=== PATIENT | female | born 1955 | race Caucasian/White ===

== ENCOUNTER 2016-09-02 16:26 | Inpatient (IN) | payer MEDICARE, MEDICAID ==
[~2016-09-02] VITALS: Ht 170.2 cm; Wt 88.2 kg
[~2016-09-02 16:26] MED LIST: BACL10TA PO; DSS100 PO; DULO60CA44 PO; FERS325 PO; LEVE500T53 PO; METO25 PO; OMEP20 PO; PREG50 PO; QUET200T29 PO; ZOLP10 PO
[2016-09-02] MEDS ORDERED: QUEtiapine FUMARATE 100 MG TABLET PO PRN (18:15)
[2016-09-02] MEDS ORDERED: MAGNESIUM HYDROXIDE SUSPENSION 30 ML UDCUP PO PRN (18:15)
[2016-09-02] MEDS ORDERED: HydrOXYzine PAMOATE 50 MG CAPSULE PO PRN (18:15)
[2016-09-02] MEDS ORDERED: PROMETHAZINE HCL 25 MG TABLET PO PRN (18:15)
[2016-09-02] MEDS ORDERED: MAG HYDROX/AL HYDROX/SIMETH ES 30 ML SUSPENSION UDCUP PO PRN (18:15)
[2016-09-02] MEDS ORDERED: GuaiFENesin/D-METHORPHAN [SUGAR-FREE] 200-20MG/10 ML SYRUP UDCUP PO PRN (18:15)
[2016-09-02] MEDS ORDERED: LOPERAMIDE HCL 2 MG CAPSULE PO PRN (18:15)
[2016-09-02 19:29] LABS: APPEARANCE,URINE CLOUDY (CLEAR); GLUCOSE, URINE (UA) NEGATIVE (NEGATIVE); KETONES,URINE NEGATIVE (NEGATIVE); LEUKOCYTE ESTERASE ,URINE TRACE (NEGATIVE); OCCULT BLOOD,URINE NEGATIVE (NEGATIVE); PROTEIN,URINE NEGATIVE (NEGATIVE)
[2016-09-02 19:35] LABS: ADD UA MICROSCOPIC YES
[2016-09-02 19:36] LABS: RBC,URINE 0-2 /HPF (0-2); SQUAMOUS EPITHELIAL CELL,UR Few /LPF (None Seen)
[2016-09-02 20:49] VITALS: BP 136/85
[2016-09-02 21:10] VITALS: BP 139/87
[2016-09-02] MEDS: ACETAMINOPHEN 325 MG TABLET PO PRN (21:14)
[2016-09-02] MEDS: LevETIRAcetam 500 MG TABLET PO SCH (21:14)
[2016-09-02] MEDS: THIAMINE HCL 100 MG TABLET PO SCH (21:15)
[2016-09-02] MEDS: NITROFURANTOIN/NITROFURAN MAC 100 MG CAPSULE [MACROBID] PO SCH (21:15)
[2016-09-02] MEDS: PREGABALIN 50 MG CAPSULE PO SCH (21:15)
[2016-09-02] MEDS: ZOLPIDEM TARTRATE 10 MG TABLET PO PRN (21:20)
[2016-09-02] MEDS: QUEtiapine FUMARATE 200 MG TABLET PO SCH (21:20)
[2016-09-03 02:05] VITALS: BP 132/82
[2016-09-03] MEDS ORDERED: TraMADol HCL 50 MG TABLET PO PRN (06:00)
[2016-09-03] MEDS: FERROUS SULFATE 325 MG EC TABLET PO SCH ×3 (06:51→16:51)
[2016-09-03 08:30] VITALS: BP 114/74
[2016-09-03] MEDS ORDERED: DULoxetine HCL 60 MG CAPSULE PO SCH (09:00)
[2016-09-03] MEDS: MULTIVITAMINS WITH MINERALS, THERAPEUTIC TABLET PO SCH (09:36)
[2016-09-03] MEDS: THIAMINE HCL 100 MG TABLET PO SCH ×2 (09:36→16:51)
[2016-09-03] MEDS: NITROFURANTOIN/NITROFURAN MAC 100 MG CAPSULE [MACROBID] PO SCH ×2 (09:36→16:51)
[2016-09-03] MEDS: OMEPRAZOLE 20 MG CAPSULE PO SCH (09:36)
[2016-09-03] MEDS: PREGABALIN 50 MG CAPSULE PO SCH ×3 (09:38→16:51)
[2016-09-03] MEDS: METOPROLOL TARTRATE 25 MG TABLET PO SCH ×2 (09:38→16:51)
[2016-09-03] MEDS: LevETIRAcetam 500 MG TABLET PO SCH ×2 (09:39→16:50)
[2016-09-03] MEDS: DOCUSATE SODIUM 100 MG CAPSULE PO SCH (09:39)
[2016-09-03] MEDS: FOLIC ACID 1 MG TABLET PO SCH (09:40)
[2016-09-03] MEDS: DULoxetine HCL 60 MG CAPSULE PO SCH (09:40)
[2016-09-03] MEDS: BACLOFEN 10 MG TABLET PO SCH ×3 (09:40→16:51)
[2016-09-03] MEDS: LORazepam 1 MG TABLET PO PRN (10:30)
[2016-09-03 17:00] VITALS: BP 118/72
[2016-09-03] MEDS: QUEtiapine FUMARATE 200 MG TABLET PO SCH (20:55)
[2016-09-04 06:08] LABS: BASOPHILS % (AUTO) 0.7 % (0.0-2.0); EOSINOPHILS % (AUTO) 3.3 % (1.0-6.0); HEMATOCRIT 40.1 % (36-46); HEMOGLOBIN 12.7 g/dL (12.0-16.0); LYMPHOCYTES # (AUTO) 2.3 K/uL (1.0-4.8); LYMPHOCYTES % (AUTO) 35.4 % (22.0-44.0); MEAN CORPUSCULAR HGB CONC 31.7 G/dL (31.0-37.0); MEAN CORPUSCULAR VOLUME 85 fL (80-100); MONOCYTES # (AUTO) 0.7 K/uL (0.1-1.0); MONOCYTES % (AUTO) 10.7 % (2.0-9.0); NEUTROPHILS # (AUTO) 3.2 K/uL (1.8-7.7); NEUTROPHILS % (AUTO) 49.9 % (40.0-70.0); PLATELET COUNT (AUTO) 219 K/uL (150-450); RED BLOOD CELL COUNT(AUTO) 4.71 MIL/uL (4.00-5.20); RED CELL DISTRIBUTION WIDTH 15.1 % (11.5-14.5); WHITE BLOOD COUNT (AUTO) 6.4 K/uL (4.5-11.0)
[2016-09-04] MEDS: FERROUS SULFATE 325 MG EC TABLET PO SCH ×2 (06:38→16:34)
[2016-09-04 06:39] LABS: ALANINE AMINOTRANSFERASE 12 U/L (12-78); ALBUMIN 3.1 g/dL (3.4-5.0); ANION GAP 7 mmol/L (8-16); ASPARTATE AMINOTRANSFERASE 11 U/L (15-37); BILIRUBIN,TOTAL 0.5 mg/dL (0.1-1.0); CALCIUM, TOTAL 8.8 mg/dL (8.8-10.5); CARBON DIOXIDE 29 mmol/L (22-29); CHLORIDE 105 mmol/L (98-107); CHOL/HDL RATIO 2.5 (3.9-5.7); CREATININE 0.62 mg/dL (0.60-1.30); GLOMERULAR FILTR. RATE CALC > 60 mL/min (>60); POTASSIUM 3.8 mmol/L (3.5-5.1); SODIUM SERUM 141 mmol/L (136-145); THYROID STIMULATING HORMONE 0.86 uIU/mL (0.36-3.74); TOTAL PROTEIN, SERUM 6.3 g/dL (6.4-8.2); UREA NITROGEN, BLOOD 20 mg/dL (7-18)
[2016-09-04 07:12] LABS: HEMOGLOBIN A1C 5.9 % (4.5-6.2)
[2016-09-04 08:00] VITALS: BP 111/73
[2016-09-04] MEDS: DULoxetine HCL 60 MG CAPSULE PO SCH (08:27)
[2016-09-04] MEDS: LevETIRAcetam 500 MG TABLET PO SCH ×2 (08:27→16:34)
[2016-09-04] MEDS: PREGABALIN 50 MG CAPSULE PO SCH ×3 (08:27→16:34)
[2016-09-04] MEDS: OMEPRAZOLE 20 MG CAPSULE PO SCH (08:27)
[2016-09-04] MEDS: MULTIVITAMINS WITH MINERALS, THERAPEUTIC TABLET PO SCH (08:27)
[2016-09-04] MEDS: THIAMINE HCL 100 MG TABLET PO SCH ×2 (08:27→16:35)
[2016-09-04] MEDS: DOCUSATE SODIUM 100 MG CAPSULE PO SCH (08:27)
[2016-09-04] MEDS: FOLIC ACID 1 MG TABLET PO SCH (08:27)
[2016-09-04] MEDS: BACLOFEN 10 MG TABLET PO SCH ×3 (08:28→16:34)
[2016-09-04] MEDS: LORazepam 1 MG TABLET PO PRN ×3 (08:58→20:31)
[2016-09-04] MEDS: METOPROLOL TARTRATE 25 MG TABLET PO SCH ×2 (09:38→16:34)
[2016-09-04] MEDS: NITROFURANTOIN/NITROFURAN MAC 100 MG CAPSULE [MACROBID] PO SCH ×2 (09:39→16:34)
[2016-09-04 16:20] VITALS: BP 131/70
[2016-09-04] MEDS: QUEtiapine FUMARATE 200 MG TABLET PO SCH (20:14)
[2016-09-04] MEDS: ZOLPIDEM TARTRATE 10 MG TABLET PO PRN (20:48)
[2016-09-05] MEDS: FERROUS SULFATE 325 MG EC TABLET PO SCH ×2 (07:21→16:32)
[2016-09-05 08:00] VITALS: BP 113/62
[2016-09-05] MEDS: THIAMINE HCL 100 MG TABLET PO SCH ×2 (08:28→16:23)
[2016-09-05] MEDS: BACLOFEN 10 MG TABLET PO SCH ×3 (08:28→16:23)
[2016-09-05] MEDS: PREGABALIN 50 MG CAPSULE PO SCH ×3 (08:28→16:22)
[2016-09-05] MEDS: OMEPRAZOLE 20 MG CAPSULE PO SCH (08:28)
[2016-09-05] MEDS: METOPROLOL TARTRATE 25 MG TABLET PO SCH ×2 (08:28→16:22)
[2016-09-05] MEDS: FOLIC ACID 1 MG TABLET PO SCH (08:28)
[2016-09-05] MEDS: LevETIRAcetam 500 MG TABLET PO SCH ×2 (08:28→16:24)
[2016-09-05] MEDS: DULoxetine HCL 60 MG CAPSULE PO SCH (08:28)
[2016-09-05] MEDS: MULTIVITAMINS WITH MINERALS, THERAPEUTIC TABLET PO SCH (08:28)
[2016-09-05] MEDS: DOCUSATE SODIUM 100 MG CAPSULE PO SCH (08:28)
[2016-09-05] MEDS: NITROFURANTOIN/NITROFURAN MAC 100 MG CAPSULE [MACROBID] PO SCH ×2 (08:29→16:23)
[2016-09-05] MEDS: LORazepam 1 MG TABLET PO PRN ×2 (10:36→16:20)
[2016-09-05] MEDS ORDERED: ONDANSETRON HCL 4 MG TABLET PO PRN (15:00)
[2016-09-05] MEDS ORDERED: PETROLATUM,WHITE 71 GM JELLY TP PRN (15:00)
[2016-09-05] MEDS ORDERED: LOPERAMIDE HCL 2 MG CAPSULE PO PRN (15:00)
[2016-09-05] MEDS ORDERED: CloNIDine HCL 0.1 MG TABLET PO PRN (15:00)
[2016-09-05] MEDS ORDERED: ALBUTEROL SULFATE HFA 90 MCG/PUFF 8 GM INHALER IH PRN (15:00)
[2016-09-05] MEDS ORDERED: BACITRACIN 28.4 GM OINTMENT TP PRN (15:00)
[2016-09-05] MEDS ORDERED: BENZOCAINE/MENTHOL LOZENGE [8 LOZENGES/PACKET] MM PRN (15:15)
[2016-09-05 16:19] VITALS: BP 127/83
[2016-09-05] MEDS: ACETAMINOPHEN 325 MG TABLET PO PRN (16:20)
[2016-09-05] MEDS: LACTULOSE 20 GM/30 ML SOLUTION UDCUP PO PRN (16:22)
[2016-09-05] MEDS: ZOLPIDEM TARTRATE 10 MG TABLET PO PRN (20:29)
[2016-09-05] MEDS: QUEtiapine FUMARATE 200 MG TABLET PO SCH (20:29)
[2016-09-06] MEDS: FERROUS SULFATE 325 MG EC TABLET PO SCH ×2 (07:07→17:35)
[2016-09-06] MEDS: FOLIC ACID 1 MG TABLET PO SCH (08:08)
[2016-09-06] MEDS: LevETIRAcetam 500 MG TABLET PO SCH ×2 (08:08→17:35)
[2016-09-06] MEDS: BACLOFEN 10 MG TABLET PO SCH ×3 (08:08→17:36)
[2016-09-06] MEDS: DOCUSATE SODIUM 100 MG CAPSULE PO SCH (08:08)
[2016-09-06] MEDS: METOPROLOL TARTRATE 25 MG TABLET PO SCH ×2 (08:08→17:00)
[2016-09-06] MEDS: DULoxetine HCL 60 MG CAPSULE PO SCH (08:09)
[2016-09-06] MEDS: PREGABALIN 50 MG CAPSULE PO SCH ×3 (08:09→17:35)
[2016-09-06] MEDS: THIAMINE HCL 100 MG TABLET PO SCH ×2 (08:09→17:35)
[2016-09-06] MEDS: OMEPRAZOLE 20 MG CAPSULE PO SCH (08:09)
[2016-09-06] MEDS: NITROFURANTOIN/NITROFURAN MAC 100 MG CAPSULE [MACROBID] PO SCH ×2 (08:09→17:35)
[2016-09-06] MEDS: MULTIVITAMINS WITH MINERALS, THERAPEUTIC TABLET PO SCH (08:09)
[2016-09-06 08:17] VITALS: BP 108/62
[2016-09-06] MEDS: LORazepam 1 MG TABLET PO PRN (12:50)
[2016-09-06 17:00] VITALS: BP 112/68
[2016-09-06] MEDS: QUEtiapine FUMARATE 200 MG TABLET PO SCH (20:02)
[2016-09-06] MEDS: ZOLPIDEM TARTRATE 10 MG TABLET PO PRN (21:07)
[2016-09-07 05:20] VITALS: BP 115/69
[2016-09-07] MEDS: LORazepam 1 MG TABLET PO PRN ×2 (05:23→11:10)
[2016-09-07] MEDS: FERROUS SULFATE 325 MG EC TABLET PO SCH ×2 (07:05→16:44)
[2016-09-07 08:18] VITALS: BP 114/65
[2016-09-07] MEDS: MULTIVITAMINS WITH MINERALS, THERAPEUTIC TABLET PO SCH (08:36)
[2016-09-07] MEDS: OMEPRAZOLE 20 MG CAPSULE PO SCH (08:36)
[2016-09-07] MEDS: FOLIC ACID 1 MG TABLET PO SCH (08:38)
[2016-09-07] MEDS: LevETIRAcetam 500 MG TABLET PO SCH ×2 (08:38→16:44)
[2016-09-07] MEDS: DOCUSATE SODIUM 100 MG CAPSULE PO SCH (08:38)
[2016-09-07] MEDS: DULoxetine HCL 60 MG CAPSULE PO SCH (08:39)
[2016-09-07] MEDS: THIAMINE HCL 100 MG TABLET PO SCH ×2 (08:41→16:44)
[2016-09-07] MEDS: PREGABALIN 50 MG CAPSULE PO SCH ×3 (08:41→16:43)
[2016-09-07] MEDS: BACLOFEN 10 MG TABLET PO SCH ×3 (08:41→16:43)
[2016-09-07] MEDS: NITROFURANTOIN/NITROFURAN MAC 100 MG CAPSULE [MACROBID] PO SCH ×2 (08:41→16:43)
[2016-09-07] MEDS: METOPROLOL TARTRATE 25 MG TABLET PO SCH ×2 (09:00→16:44)
[2016-09-07] MEDS: IBUPROFEN 600 MG TABLET PO PRN (11:10)
[2016-09-07 16:31] VITALS: BP 99/56
[2016-09-07] MEDS: QUEtiapine FUMARATE 200 MG TABLET PO SCH (20:21)
[2016-09-08] MEDS: ZOLPIDEM TARTRATE 10 MG TABLET PO PRN ×2 (02:59→20:14)
[2016-09-08 03:09] VITALS: BP 98/52
[2016-09-08] MEDS: FERROUS SULFATE 325 MG EC TABLET PO SCH ×3 (07:17→19:09)
[2016-09-08 08:20] VITALS: BP 96/52
[2016-09-08] MEDS: METOPROLOL TARTRATE 25 MG TABLET PO SCH ×2 (08:21→16:07)
[2016-09-08] MEDS: FOLIC ACID 1 MG TABLET PO SCH (08:21)
[2016-09-08] MEDS: OMEPRAZOLE 20 MG CAPSULE PO SCH (08:21)
[2016-09-08] MEDS: DOCUSATE SODIUM 100 MG CAPSULE PO SCH (08:21)
[2016-09-08] MEDS: THIAMINE HCL 100 MG TABLET PO SCH ×2 (08:22→16:08)
[2016-09-08] MEDS: MULTIVITAMINS WITH MINERALS, THERAPEUTIC TABLET PO SCH (08:22)
[2016-09-08] MEDS: LevETIRAcetam 500 MG TABLET PO SCH ×2 (08:22→16:08)
[2016-09-08] MEDS: BACLOFEN 10 MG TABLET PO SCH ×3 (08:22→19:09)
[2016-09-08] MEDS: DULoxetine HCL 60 MG CAPSULE PO SCH (08:22)
[2016-09-08] MEDS: PREGABALIN 50 MG CAPSULE PO SCH ×3 (08:22→16:07)
[2016-09-08] MEDS: LACTULOSE 20 GM/30 ML SOLUTION UDCUP PO PRN (08:26)
[2016-09-08] MEDS: LORazepam 1 MG TABLET PO PRN (11:32)
[2016-09-08 16:28] VITALS: BP 101/67
[2016-09-08] MEDS ORDERED: LEVE500T53 PO (17:40)
[2016-09-08] MEDS ORDERED: QUET200T29 PO (17:40)
[2016-09-08] MEDS ORDERED: PREG50 PO (17:40)
[2016-09-08] MEDS ORDERED: DULO60CA44 PO (17:40)
[2016-09-08] MEDS ORDERED: DICLOFENAC SODIUM 1% 100 GM GEL [2GM] TP PRN (20:00)
[2016-09-08] MEDS: QUEtiapine FUMARATE 200 MG TABLET PO SCH (20:12)
[2016-09-08] MEDS: NITROFURANTOIN/NITROFURAN MAC 100 MG CAPSULE [MACROBID] PO SCH (20:25)
[2016-09-09] MEDS: IBUPROFEN 600 MG TABLET PO PRN (02:54)
[2016-09-09 02:55] VITALS: BP 109/65
[2016-09-09] MEDS: LORazepam 1 MG TABLET PO PRN (02:55)
[2016-09-09] MEDS: FERROUS SULFATE 325 MG EC TABLET PO SCH (06:48)
[2016-09-09] MEDS: BACLOFEN 10 MG TABLET PO SCH (08:17)
[2016-09-09] MEDS: DULoxetine HCL 60 MG CAPSULE PO SCH (08:17)
[2016-09-09] MEDS: NITROFURANTOIN/NITROFURAN MAC 100 MG CAPSULE [MACROBID] PO SCH (08:18)
[2016-09-09] MEDS: LevETIRAcetam 500 MG TABLET PO SCH (08:18)
[2016-09-09] MEDS: PREGABALIN 50 MG CAPSULE PO SCH (08:18)
[2016-09-09] MEDS: THIAMINE HCL 100 MG TABLET PO SCH (08:18)
[2016-09-09] MEDS: MULTIVITAMINS WITH MINERALS, THERAPEUTIC TABLET PO SCH (08:18)
[2016-09-09] MEDS: FOLIC ACID 1 MG TABLET PO SCH (08:19)
[2016-09-09] MEDS: METOPROLOL TARTRATE 25 MG TABLET PO SCH ×2 (08:19→09:00)
[2016-09-09] MEDS: OMEPRAZOLE 20 MG CAPSULE PO SCH (08:19)
[2016-09-09] MEDS: DOCUSATE SODIUM 100 MG CAPSULE PO SCH (08:19)
[2016-09-09 08:42] VITALS: BP 93/60
[2016-09-09] MEDS ORDERED: MACR100 PO (09:04)
== END 2016-09-09 12:45 | disposition home or self-care (01) | DRG 885 ==
LOC: EMS 16:29 → 3EX 19:00
PROVIDERS: ADMIT Psychiatry & Neurology Psychiatry; ATTEND Psychiatry & Neurology Psychiatry
DX: F25.0 Schizoaffective disorder, bipolar type (principal); R45.851 Suicidal ideations; N39.0 Urinary tract infection, site not specified; F41.9 Anxiety disorder, unspecified; J44.9 Chronic obstructive pulmonary disease, unspecified; K21.9 Gastro-esophageal reflux disease without esophagitis; I10 Essential (primary) hypertension; M54.9 Dorsalgia, unspecified; G40.909 Epilepsy, unspecified, not intractable, without status epilepticus; G83.10 Monoplegia of lower limb affecting unspecified side; N31.9 Neuromuscular dysfunction of bladder, unspecified; G89.4 Chronic pain syndrome; E66.9 Obesity, unspecified; M21.379 Foot drop, unspecified foot; M54.2 Cervicalgia; K59.00 Constipation, unspecified; G47.00 Insomnia, unspecified; M19.90 Unspecified osteoarthritis, unspecified site; F60.3 Borderline personality disorder; M25.552 Pain in left hip; E86.0 Dehydration; F17.210 Nicotine dependence, cigarettes, uncomplicated; F11.90 Opioid use, unspecified, uncomplicated; Z88.0 Allergy status to penicillin; Z79.899 Other long term (current) drug therapy; Z90.49 Acquired absence of other specified parts of digestive tract; Z91.19 Patient's noncompliance with other medical treatment and regimen; Z68.31 Body mass index [BMI] 31.0-31.9, adult; Z87.440 Personal history of urinary (tract) infections; Z91.410 Personal history of adult physical and sexual abuse; Z87.820 Personal history of traumatic brain injury
CPT/HCPCS: 82607; 82746; 83036; 84439; 84443; 86592; 87086; 99285

== ENCOUNTER 2016-10-04 11:38 | Emergency (ER) | payer OTHER ==
[~2016-10-04] VITALS: Ht 170.2 cm; Wt 87.7 kg
[~2016-10-04 11:38] MED LIST changes: +FERR-89 PO; -FERS325 PO; +MACR100 PO; -ZOLP10 PO
[2016-10-04] MEDS ORDERED: HYDROCODONE/ACETAMINOPHEN 5-325 MG TABLET PO ONE (13:30)
[2016-10-04 15:30] VITALS: BP 124/78
== END 2016-10-04 16:00 | disposition home or self-care (01) ==
LOC: EMS 11:40
DX: S13.4XXA Sprain of ligaments of cervical spine, initial encounter (principal); S00.93XA Contusion of unspecified part of head, initial encounter; M54.9 Dorsalgia, unspecified; J44.9 Chronic obstructive pulmonary disease, unspecified; I10 Essential (primary) hypertension; K21.9 Gastro-esophageal reflux disease without esophagitis; Z88.0 Allergy status to penicillin; W18.39XA Other fall on same level, initial encounter; Y93.89 Activity, other specified; Y92.89 Other specified places as the place of occurrence of the external cause; Y99.8 Other external cause status
CPT/HCPCS: 70450; 72072; 72100; 72125; 99284

== ENCOUNTER 2016-11-05 12:56 | Emergency (ER) | payer MEDICARE, OTHER ==
[~2016-11-05] VITALS: Ht 170.2 cm; Wt 87.7 kg
[2016-11-05 14:39] VITALS: BP 107/72
== END 2016-11-05 14:51 | disposition home or self-care (01) ==
LOC: EMS 12:58
DX: R53.1 Weakness (principal); F20.9 Schizophrenia, unspecified; F32.9 Major depressive disorder, single episode, unspecified; F41.9 Anxiety disorder, unspecified; J44.9 Chronic obstructive pulmonary disease, unspecified; I10 Essential (primary) hypertension; K21.9 Gastro-esophageal reflux disease without esophagitis; Z88.0 Allergy status to penicillin; Z79.899 Other long term (current) drug therapy
CPT/HCPCS: 99283

== ENCOUNTER 2017-01-20 22:29 | Emergency (ER) | payer MEDICAID, MEDICARE ==
[~2017-01-20] VITALS: Ht 167.6 cm; Wt 68.0 kg
[~2017-01-20 22:29] MED LIST changes: +ACAM333T7 PO; -BACL10TA PO; -FERR-89 PO; -MACR100 PO; -OMEP20 PO; +PANT40TA25 PO; +PREG75 PO; -QUET200T29 PO; +QUET25TA PO; +QUET25TA34 PO; +QUET300T18 PO; +QUET300T2 PO
[2017-01-21 01:16] LABS: BASOPHILS # (AUTO) 0.12 K/uL (0.00-0.20); BASOPHILS % (AUTO) 1.4 % (0.0-2.0); EOSINOPHILS # (AUTO) 0.13 K/uL (0.00-0.70); HEMATOCRIT 45.4 % (36-46); LYMPHOCYTES # (AUTO) 2.5 K/uL (1.0-4.8); MEAN CORPUSCULAR HEMOGLOBIN 28.3 pg (26.0-34.0); MEAN CORPUSCULAR HGB CONC 33.1 G/dL (31.0-37.0); MEAN CORPUSCULAR VOLUME 85 fL (80-100); MONOCYTES # (AUTO) 0.8 K/uL (0.1-1.0); MONOCYTES % (AUTO) 10.3 % (2.0-9.0); NEUTROPHILS # (AUTO) 4.5 K/uL (1.8-7.7); NEUTROPHILS % (AUTO) 55.7 % (40.0-70.0); PLATELET COUNT (AUTO) 289 K/uL (150-450); RED BLOOD CELL COUNT(AUTO) 5.31 MIL/uL (4.00-5.20); RED CELL DISTRIBUTION WIDTH 15.4 % (11.5-14.5); WHITE BLOOD COUNT (AUTO) 8.1 K/uL (4.5-11.0)
[2017-01-21 01:24] LABS: ANION GAP 11 mmol/L (8-16); CALCIUM, TOTAL 9.6 mg/dL (8.8-10.5); CARBON DIOXIDE 23 mmol/L (22-29); CHLORIDE 106 mmol/L (98-107); CREATININE 0.83 mg/dL (0.60-1.30); GLOMERULAR FILTR. RATE CALC > 60 mL/min (>60); POTASSIUM 3.7 mmol/L (3.5-5.1); SODIUM SERUM 140 mmol/L (136-145); UREA NITROGEN, BLOOD 18 mg/dL (7-18)
[2017-01-21 01:31] LABS: ALANINE AMINOTRANSFERASE 21 U/L (12-78); ALBUMIN 3.7 g/dL (3.4-5.0); ASPARTATE AMINOTRANSFERASE 12 U/L (15-37); BILIRUBIN,TOTAL 0.6 mg/dL (0.1-1.0); TOTAL PROTEIN, SERUM 7.3 g/dL (6.4-8.2)
[2017-01-21 03:43] VITALS: BP 129/77
[2017-01-25] MEDS ORDERED: CIPR-278 PO (13:14)
== END 2017-01-21 04:24 | disposition home or self-care (01) ==
LOC: EMS 22:35
DX: R46.89 Other symptoms and signs involving appearance and behavior (principal); R45.851 Suicidal ideations; F20.9 Schizophrenia, unspecified; F32.9 Major depressive disorder, single episode, unspecified; F41.9 Anxiety disorder, unspecified; J44.9 Chronic obstructive pulmonary disease, unspecified; K21.9 Gastro-esophageal reflux disease without esophagitis; I10 Essential (primary) hypertension; Z88.0 Allergy status to penicillin
CPT/HCPCS: 36415; 80053; 80307; 85025; 99284; G0480

== ENCOUNTER 2017-03-28 21:58 | Emergency (ER) | payer MEDICARE ==
[~2017-03-28] VITALS: Ht 170.2 cm; Wt 90.0 kg
[~2017-03-28 21:58] MED LIST changes: +CIPR-278 PO; -METO25 PO; -PREG75 PO; -QUET25TA PO; -QUET25TA34 PO; -QUET300T2 PO
[2017-03-28] MEDS ORDERED: CLON-570 PO (22:32)
[2017-03-28] MEDS ORDERED: VIST50 PO ×2 (22:40)
[2017-03-28] MEDS ORDERED: IBUP-2070 PO (22:40)
[2017-03-28] MEDS ORDERED: HYDROMORPHONE PO (22:40)
[2017-03-28] MEDS ORDERED: CYCL10 PO (22:40)
[2017-03-28] MEDS ORDERED: ZOLP10TA7 PO (22:40)
[2017-03-28] MEDS ORDERED: IPRA3AMP4 NEB (22:40)
[2017-03-28] MEDS ORDERED: DIVA250T45 PO (22:40)
[2017-03-28] MEDS ORDERED: OXYC20 PO (22:40)
[2017-03-28] MEDS ORDERED: HYDR-309 PO (22:40)
[2017-03-28] MEDS ORDERED: ONDA4 PO (22:40)
[2017-03-29] MEDS ORDERED: ACETAMINOPHEN 500 MG TABLET PO ONE (01:15)
[2017-03-29] MEDS ORDERED: HYDROCODONE/ACETAMINOPHEN 10-325 MG TABLET PO ONE (09:00)
[2017-03-29 10:30] VITALS: BP 124/82
== END 2017-03-29 11:18 | disposition home or self-care (01) ==
LOC: EMS 22:02
DX: S46.912A Strain of unspecified muscle, fascia and tendon at shoulder and upper arm level, left arm, initial encounter (principal); J44.9 Chronic obstructive pulmonary disease, unspecified; K21.9 Gastro-esophageal reflux disease without esophagitis; I10 Essential (primary) hypertension; Z88.8 Allergy status to other drugs, medicaments and biological substances; Z88.0 Allergy status to penicillin; W50.0XXA Accidental hit or strike by another person, initial encounter; Y93.89 Activity, other specified; Y92.89 Other specified places as the place of occurrence of the external cause; Y99.8 Other external cause status
CPT/HCPCS: 99284

== ENCOUNTER 2017-04-22 11:29 | Emergency (ER) | payer MEDICARE, MEDICAID ==
[~2017-04-22] VITALS: Ht 170.2 cm; Wt 87.7 kg
[~2017-04-22 11:29] MED LIST changes: -CIPR-278 PO; +CLON-570 PO; +CYCL10 PO; +DIVA250T45 PO; +HYDR-309 PO; +HYDROMORPHONE PO; +IBUP-2070 PO; +IPRA3AMP4 NEB; +ONDA4 PO; +OXYC20 PO; +VIST50 PO; +ZOLP10TA7 PO
[2017-04-22] MEDS ORDERED: NALO25TA PO (12:04)
[2017-04-22 14:12] VITALS: BP 114/82
[2017-04-22] MEDS ORDERED: HydrOXYzine PAMOATE 25 MG CAPSULE PO ONE (14:15)
== END 2017-04-22 14:37 | disposition home or self-care (01) ==
LOC: EMS 11:31
DX: F43.21 Adjustment disorder with depressed mood (principal); N39.0 Urinary tract infection, site not specified; F41.9 Anxiety disorder, unspecified; F31.9 Bipolar disorder, unspecified; F20.9 Schizophrenia, unspecified; J44.9 Chronic obstructive pulmonary disease, unspecified; K21.9 Gastro-esophageal reflux disease without esophagitis; G89.29 Other chronic pain; Z59.9 Problem related to housing and economic circumstances, unspecified; Z88.8 Allergy status to other drugs, medicaments and biological substances; Z88.0 Allergy status to penicillin
CPT/HCPCS: 99284

== ENCOUNTER 2017-04-22 17:00 | Inpatient (IN) | payer MEDICARE, MEDICAID ==
[~2017-04-22] VITALS: Ht 170.2 cm; Wt 83.2 kg
[~2017-04-22 17:00] MED LIST changes: +NALO25TA PO
[2017-04-22 19:28] LABS: BASOPHILS % (AUTO) 0.5 % (0.0-2.0); EOSINOPHILS % (AUTO) 0.3 % (1.0-6.0); HEMATOCRIT 42.1 % (36-46); HEMOGLOBIN 14.3 g/dL (12.0-16.0); LYMPHOCYTES # (AUTO) 1.3 K/uL (1.0-4.8); LYMPHOCYTES % (AUTO) 26.1 % (22.0-44.0); MEAN CORPUSCULAR HEMOGLOBIN 28.5 pg (26.0-34.0); MEAN CORPUSCULAR HGB CONC 33.8 G/dL (31.0-37.0); MEAN CORPUSCULAR VOLUME 84 fL (80-100); MONOCYTES # (AUTO) 0.4 K/uL (0.1-1.0); MONOCYTES % (AUTO) 8.1 % (2.0-9.0); NEUTROPHILS # (AUTO) 3.3 K/uL (1.8-7.7); PLATELET COUNT (AUTO) 274 K/uL (150-450); RED BLOOD CELL COUNT(AUTO) 5.01 MIL/uL (4.00-5.20); RED CELL DISTRIBUTION WIDTH 13.4 % (11.5-14.5)
[2017-04-22 20:04] LABS: ALANINE AMINOTRANSFERASE 24 U/L (12-78); ANION GAP 12 mmol/L (8-16); ASPARTATE AMINOTRANSFERASE 19 U/L (15-37); BILIRUBIN,TOTAL 0.6 mg/dL (0.1-1.0); CALCIUM, TOTAL 9.5 mg/dL (8.8-10.5); CARBON DIOXIDE 25 mmol/L (22-29); CHLORIDE 103 mmol/L (98-107); CHOL/HDL RATIO 2.2 (3.9-5.7); CREATININE 0.68 mg/dL (0.60-1.30); GLOMERULAR FILTR. RATE CALC > 60 mL/min (>60); POTASSIUM 3.9 mmol/L (3.5-5.1); SODIUM SERUM 140 mmol/L (136-145); THYROID STIMULATING HORMONE 0.49 uIU/mL (0.36-3.74); TOTAL PROTEIN, SERUM 7.7 g/dL (6.4-8.2); UREA NITROGEN, BLOOD 14 mg/dL (7-18)
[2017-04-22] MEDS ORDERED: CIPROFLOXACIN HCL 500 MG TABLET PO ONE (20:15)
[2017-04-22 20:23] LABS: HEMOGLOBIN A1C 5.5 % (4.5-6.2)
[2017-04-22 21:00] VITALS: BP 140/87
[2017-04-22] MEDS: LevETIRAcetam 500 MG TABLET PO SCH (21:06)
[2017-04-22] MEDS: PREGABALIN 50 MG CAPSULE PO SCH (21:07)
[2017-04-22] MEDS: HydrOXYzine PAMOATE 50 MG CAPSULE PO SCH (21:08)
[2017-04-22] MEDS: QUEtiapine FUMARATE 200 MG TABLET PO SCH (21:08)
[2017-04-22] MEDS ORDERED: INFLUENZA VIRUS VACCINE QVS 2017-18 (3YR+)/PF 60 MCG/0.5 ML SYRINGE IM ONE (22:15)
[2017-04-22] MEDS ORDERED: -PHARMACY VACCINE NOTE- MISC ONE ×2 (22:15)
[2017-04-22] MEDS ORDERED: PNEUMOCOCCAL VACCINE POLYVALENT 0.5 ML VIAL [PPSV23] IM ONE (22:15)
[2017-04-23] MEDS: LORazepam 1 MG TABLET PO PRN ×2 (04:39→11:24)
[2017-04-23 04:56] VITALS: BP 132/76
[2017-04-23] MEDS: PANTOPRAZOLE SODIUM 40 MG DR TABLET PO SCH (06:31)
[2017-04-23] MEDS ORDERED: ACETAMINOPHEN 325 MG TABLET PO PRN (06:45)
[2017-04-23 08:30] VITALS: BP 127/83
[2017-04-23] MEDS: LevETIRAcetam 500 MG TABLET PO SCH ×2 (10:00→16:33)
[2017-04-23] MEDS: PREGABALIN 50 MG CAPSULE PO SCH ×2 (10:00→16:33)
[2017-04-23] MEDS: DOCUSATE SODIUM 100 MG CAPSULE PO SCH ×2 (10:01→16:33)
[2017-04-23] MEDS: DULoxetine HCL 30 MG CAPSULE PO SCH (10:01)
[2017-04-23] MEDS: CYCLOBENZAPRINE HCL 10 MG TABLET PO SCH ×2 (10:06→16:33)
[2017-04-23 17:00] VITALS: BP 130/74
[2017-04-23] MEDS: HydrOXYzine PAMOATE 50 MG CAPSULE PO SCH (20:49)
[2017-04-23] MEDS: QUEtiapine FUMARATE 200 MG TABLET PO SCH (20:49)
[2017-04-23] MEDS: ZOLPIDEM TARTRATE 10 MG TABLET PO PRN (21:20)
[2017-04-24] MEDS: PANTOPRAZOLE SODIUM 40 MG DR TABLET PO SCH (06:47)
[2017-04-24 09:06] VITALS: BP 96/67
[2017-04-24] MEDS: PREGABALIN 50 MG CAPSULE PO SCH ×2 (09:07→17:56)
[2017-04-24] MEDS: QUEtiapine FUMARATE 100 MG TABLET PO PRN ×2 (09:10→14:27)
[2017-04-24] MEDS: LORazepam 1 MG TABLET PO PRN ×2 (09:10→14:27)
[2017-04-24] MEDS: CYCLOBENZAPRINE HCL 10 MG TABLET PO SCH ×2 (09:15→17:55)
[2017-04-24] MEDS: DULoxetine HCL 30 MG CAPSULE PO SCH (09:17)
[2017-04-24] MEDS: DOCUSATE SODIUM 100 MG CAPSULE PO SCH ×2 (09:17→17:56)
[2017-04-24] MEDS: LevETIRAcetam 500 MG TABLET PO SCH ×2 (09:18→17:56)
[2017-04-24] MEDS: IBUPROFEN 400 MG TABLET PO PRN (14:27)
[2017-04-24 16:30] VITALS: BP 115/91
[2017-04-24] MEDS ORDERED: ONDANSETRON HCL 4 MG TABLET PO PRN (20:15)
[2017-04-24] MEDS: QUEtiapine FUMARATE 200 MG TABLET PO SCH (20:38)
[2017-04-24] MEDS: HydrOXYzine PAMOATE 50 MG CAPSULE PO SCH (20:39)
[2017-04-24] MEDS: ZOLPIDEM TARTRATE 10 MG TABLET PO PRN (20:40)
[2017-04-24] MEDS ORDERED: ALBUTEROL SULFATE HFA 90 MCG/PUFF 8 GM INHALER IH PRN (21:45)
[2017-04-24] MEDS: PROMETHAZINE HCL 25 MG/ML VIAL IM PRN (22:52)
[2017-04-25] VITALS: BP 135/90
[2017-04-25 01:22] LABS: ANION GAP 11 mmol/L (8-16); CALCIUM, TOTAL 9.8 mg/dL (8.8-10.5); CARBON DIOXIDE 26 mmol/L (22-29); CHLORIDE 103 mmol/L (98-107); CREATININE 0.79 mg/dL (0.60-1.30); GLOMERULAR FILTR. RATE CALC > 60 mL/min (>60); SODIUM SERUM 140 mmol/L (136-145); UREA NITROGEN, BLOOD 21 mg/dL (7-18)
[2017-04-25 01:28] LABS: ALANINE AMINOTRANSFERASE 21 U/L (12-78); ALBUMIN 3.8 g/dL (3.4-5.0); ASPARTATE AMINOTRANSFERASE 13 U/L (15-37); BILIRUBIN,TOTAL 0.8 mg/dL (0.1-1.0); TOTAL PROTEIN, SERUM 7.3 g/dL (6.4-8.2)
[2017-04-25] MEDS: LORazepam 1 MG TABLET PO PRN ×2 (01:43→13:11)
[2017-04-25] MEDS ORDERED: BARIUM SULFATE 0.1% SUSPENSION 450 ML BOTTLE ONE (01:54)
[2017-04-25] MEDS: PANTOPRAZOLE SODIUM 40 MG DR TABLET PO SCH ×2 (06:22→07:00)
[2017-04-25 08:30] VITALS: BP 162/94
[2017-04-25] MEDS: PROMETHAZINE HCL 25 MG/ML VIAL IM PRN ×2 (08:53→16:26)
[2017-04-25] MEDS: LevETIRAcetam 500 MG TABLET PO SCH ×2 (09:00→17:44)
[2017-04-25] MEDS: PREGABALIN 50 MG CAPSULE PO SCH ×2 (09:00→17:44)
[2017-04-25] MEDS: DOCUSATE SODIUM 100 MG CAPSULE PO SCH ×2 (09:00→17:43)
[2017-04-25] MEDS: DULoxetine HCL 30 MG CAPSULE PO SCH (09:00)
[2017-04-25] MEDS: CYCLOBENZAPRINE HCL 10 MG TABLET PO SCH ×2 (09:00→17:44)
[2017-04-25] MEDS ORDERED: METHADONE HCL 10 MG TABLET PO SCH (09:00)
[2017-04-25 12:07] VITALS: BP 154/90
[2017-04-25] MEDS: IBUPROFEN 400 MG TABLET PO PRN (12:07)
[2017-04-25 17:13] VITALS: BP 162/96
[2017-04-25] MEDS ORDERED: HydrOXYzine PAMOATE 50 MG CAPSULE PO PRN (18:00)
[2017-04-25 18:52] LABS: APPEARANCE,URINE CLOUDY (CLEAR); GLUCOSE, URINE (UA) NEGATIVE (NEGATIVE); KETONES,URINE 15 mg/dL (NEGATIVE); LEUKOCYTE ESTERASE ,URINE SMALL (NEGATIVE); OCCULT BLOOD,URINE TRACE (NEGATIVE); PROTEIN,URINE SEE CONFIRM (NEGATIVE)
[2017-04-25 19:21] LABS: ADD UA MICROSCOPIC YES
[2017-04-25 19:25] LABS: SULFOSALICYLIC ACID,URINE 2+ (Negative)
[2017-04-25 19:26] LABS: SQUAMOUS EPITHELIAL CELL,UR Moderate /LPF (None Seen)
[2017-04-25 19:31] VITALS: BP 147/77
[2017-04-25] MEDS: QUEtiapine FUMARATE 200 MG TABLET PO SCH (20:23)
[2017-04-25] MEDS: HydrOXYzine PAMOATE 50 MG CAPSULE PO SCH (20:23)
[2017-04-25] MEDS: ZOLPIDEM TARTRATE 10 MG TABLET PO PRN (23:58)
[2017-04-25] MEDS: QUEtiapine FUMARATE 100 MG TABLET PO PRN (23:59)
[2017-04-26 00:08] VITALS: BP 138/88
[2017-04-26] MEDS: IBUPROFEN 400 MG TABLET PO PRN (03:01)
[2017-04-26] MEDS: PROMETHAZINE HCL 25 MG/ML VIAL IM PRN (06:57)
[2017-04-26] MEDS: PANTOPRAZOLE SODIUM 40 MG DR TABLET PO SCH (07:00)
[2017-04-26 08:04] VITALS: BP 146/99
[2017-04-26] MEDS: LevETIRAcetam 500 MG TABLET PO SCH ×2 (08:04→16:34)
[2017-04-26] MEDS: PREGABALIN 50 MG CAPSULE PO SCH ×2 (08:04→16:35)
[2017-04-26] MEDS: DOCUSATE SODIUM 100 MG CAPSULE PO SCH ×2 (08:04→16:34)
[2017-04-26] MEDS: DULoxetine HCL 30 MG CAPSULE PO SCH (08:04)
[2017-04-26] MEDS: CYCLOBENZAPRINE HCL 10 MG TABLET PO SCH ×2 (08:06→16:32)
[2017-04-26 13:49] VITALS: BP 112/72
[2017-04-26] MEDS: HYDROCODONE/ACETAMINOPHEN 5-325 MG TABLET PO PRN (13:49)
[2017-04-26 16:21] VITALS: BP 121/83
[2017-04-26 16:35] VITALS: BP 117/68
[2017-04-26 19:35] VITALS: BP 114/71
[2017-04-26] MEDS: QUEtiapine FUMARATE 200 MG TABLET PO SCH (20:02)
[2017-04-26] MEDS: HydrOXYzine PAMOATE 50 MG CAPSULE PO SCH (20:03)
[2017-04-26] MEDS: ZOLPIDEM TARTRATE 10 MG TABLET PO PRN (20:05)
[2017-04-27] MEDS: PANTOPRAZOLE SODIUM 40 MG DR TABLET PO SCH ×2 (06:16→07:00)
[2017-04-27 08:31] VITALS: BP 121/51
[2017-04-27] MEDS: CYCLOBENZAPRINE HCL 10 MG TABLET PO SCH ×3 (09:00→18:01)
[2017-04-27] MEDS: CIPROFLOXACIN HCL 500 MG TABLET PO SCH ×3 (09:00→17:55)
[2017-04-27] MEDS: LevETIRAcetam 500 MG TABLET PO SCH ×3 (09:00→17:56)
[2017-04-27] MEDS: DOCUSATE SODIUM 100 MG CAPSULE PO SCH ×3 (09:00→17:55)
[2017-04-27] MEDS: PREGABALIN 50 MG CAPSULE PO SCH ×3 (09:00→17:55)
[2017-04-27] MEDS: DULoxetine HCL 30 MG CAPSULE PO SCH (10:16)
[2017-04-27] MEDS: PROMETHAZINE HCL 25 MG/ML VIAL IM PRN (10:35)
[2017-04-27 11:37] VITALS: BP 116/92
[2017-04-27 18:25] VITALS: BP 112/65
[2017-04-27] MEDS: HydrOXYzine PAMOATE 50 MG CAPSULE PO SCH (21:11)
[2017-04-27] MEDS: QUEtiapine FUMARATE 200 MG TABLET PO SCH (21:11)
[2017-04-27] MEDS: OxyCODONE HCL 10 MG ER TABLET PO SCH (21:11)
[2017-04-27] MEDS: ZOLPIDEM TARTRATE 10 MG TABLET PO PRN (21:11)
[2017-04-28 01:25] VITALS: BP 126/75
[2017-04-28 01:37] VITALS: BP 115/76
[2017-04-28] MEDS: PANTOPRAZOLE SODIUM 40 MG DR TABLET PO SCH (07:08)
[2017-04-28 09:01] VITALS: BP 140/91
[2017-04-28] MEDS: CIPROFLOXACIN HCL 500 MG TABLET PO SCH ×2 (09:36→16:40)
[2017-04-28] MEDS: DOCUSATE SODIUM 100 MG CAPSULE PO SCH ×2 (09:36→16:40)
[2017-04-28] MEDS: PREGABALIN 50 MG CAPSULE PO SCH ×2 (09:37→16:40)
[2017-04-28] MEDS: OxyCODONE HCL 10 MG ER TABLET PO SCH ×2 (09:37→16:45)
[2017-04-28] MEDS: LevETIRAcetam 500 MG TABLET PO SCH ×2 (09:37→16:45)
[2017-04-28] MEDS: DULoxetine HCL 30 MG CAPSULE PO SCH (09:37)
[2017-04-28] MEDS: CYCLOBENZAPRINE HCL 10 MG TABLET PO SCH ×2 (09:39→16:45)
[2017-04-28] MEDS: HydrOXYzine PAMOATE 50 MG CAPSULE PO SCH (20:30)
[2017-04-28] MEDS: QUEtiapine FUMARATE 200 MG TABLET PO SCH (20:30)
[2017-04-28 21:23] VITALS: BP 119/89
[2017-04-28] MEDS: ZOLPIDEM TARTRATE 10 MG TABLET PO PRN (21:53)
[2017-04-29] VITALS (7 sets, daily range): BP systolic 101–127; BP diastolic 54–81
[2017-04-29] MEDS: HYDROCODONE/ACETAMINOPHEN 5-325 MG TABLET PO PRN ×2 (01:18→19:34)
[2017-04-29] MEDS: PANTOPRAZOLE SODIUM 40 MG DR TABLET PO SCH (07:00)
[2017-04-29] MEDS: CYCLOBENZAPRINE HCL 10 MG TABLET PO SCH ×2 (08:46→16:02)
[2017-04-29] MEDS: LevETIRAcetam 500 MG TABLET PO SCH ×2 (08:46→16:01)
[2017-04-29] MEDS: PREGABALIN 50 MG CAPSULE PO SCH ×2 (08:47→16:02)
[2017-04-29] MEDS: OxyCODONE HCL 10 MG ER TABLET PO SCH ×2 (08:47→16:02)
[2017-04-29] MEDS: CIPROFLOXACIN HCL 500 MG TABLET PO SCH (08:47)
[2017-04-29] MEDS: DULoxetine HCL 30 MG CAPSULE PO SCH (08:47)
[2017-04-29] MEDS: DOCUSATE SODIUM 100 MG CAPSULE PO SCH ×2 (08:47→16:01)
[2017-04-29] MEDS: ACAMPROSATE CALCIUM 333 MG DR TABLET PO SCH ×4 (09:45→16:02)
[2017-04-29] MEDS: HydrOXYzine PAMOATE 50 MG CAPSULE PO SCH (20:20)
[2017-04-29] MEDS: NITROFURANTOIN/NITROFURAN MAC 100 MG CAPSULE [MACROBID] PO SCH (20:20)
[2017-04-29] MEDS: ZOLPIDEM TARTRATE 10 MG TABLET PO PRN (20:22)
[2017-04-29] MEDS ORDERED: QUEtiapine FUMARATE 200 MG TABLET PO SCH (21:00)
[2017-04-30] MEDS: PANTOPRAZOLE SODIUM 40 MG DR TABLET PO SCH (07:00)
[2017-04-30] MEDS: ACAMPROSATE CALCIUM 333 MG DR TABLET PO SCH ×3 (08:02→16:39)
[2017-04-30] MEDS: DOCUSATE SODIUM 100 MG CAPSULE PO SCH ×2 (08:02→16:41)
[2017-04-30] MEDS: NITROFURANTOIN/NITROFURAN MAC 100 MG CAPSULE [MACROBID] PO SCH (08:02)
[2017-04-30] MEDS: CYCLOBENZAPRINE HCL 10 MG TABLET PO SCH ×2 (08:03→16:41)
[2017-04-30] MEDS: LevETIRAcetam 500 MG TABLET PO SCH ×2 (08:03→16:39)
[2017-04-30] MEDS: PREGABALIN 50 MG CAPSULE PO SCH ×2 (08:03→16:42)
[2017-04-30] MEDS: OxyCODONE HCL 10 MG ER TABLET PO SCH ×2 (08:04→16:40)
[2017-04-30] MEDS: DULoxetine HCL 30 MG CAPSULE PO SCH (08:05)
[2017-04-30 08:30] VITALS: BP 135/84
[2017-04-30 10:38] VITALS: BP 145/78
[2017-04-30 12:36] VITALS: BP 138/66
[2017-04-30] MEDS: HYDROCODONE/ACETAMINOPHEN 5-325 MG TABLET PO PRN (12:36)
[2017-04-30 13:36] VITALS: BP 119/86
[2017-04-30] MEDS ORDERED: PREG50 PO (16:18)
[2017-04-30] MEDS ORDERED: ACAM333T7 PO (16:18)
[2017-04-30] MEDS ORDERED: LEVE500T53 PO (16:18)
[2017-04-30] MEDS ORDERED: DULO30CA2 PO (16:18)
[2017-04-30] MEDS ORDERED: VIST50 PO (16:18)
[2017-04-30] MEDS ORDERED: QUET200T29 PO (16:18)
[2017-04-30 16:43] VITALS: BP 123/75
== END 2017-04-30 17:20 | DRG 885 ==
LOC: EMS 17:05 → 3EI 19:30
PROVIDERS: ADMIT Psychiatry & Neurology Psychiatry; ATTEND Psychiatry & Neurology Psychiatry
DX: F31.30 Bipolar disorder, current episode depressed, mild or moderate severity, unspecified (principal); R45.851 Suicidal ideations; Z91.19 Patient's noncompliance with other medical treatment and regimen; N39.0 Urinary tract infection, site not specified; F20.9 Schizophrenia, unspecified; I10 Essential (primary) hypertension; G89.4 Chronic pain syndrome; J44.9 Chronic obstructive pulmonary disease, unspecified; K21.9 Gastro-esophageal reflux disease without esophagitis; K59.09 Other constipation; B96.20 Unspecified Escherichia coli [E. coli] as the cause of diseases classified elsewhere; Z87.820 Personal history of traumatic brain injury; Z99.3 Dependence on wheelchair; Z88.0 Allergy status to penicillin; Z88.8 Allergy status to other drugs, medicaments and biological substances; Z90.49 Acquired absence of other specified parts of digestive tract
CPT/HCPCS: 74176; 83036; 84439; 84443; 87081; 87086; 90471; 99285; J2550; Q0162

== ENCOUNTER 2017-07-14 16:06 | Observation (INO) | payer MEDICARE, MEDICAID ==
[~2017-07-14] VITALS: Ht 170.2 cm; Wt 85.5 kg
[~2017-07-14 16:06] MED LIST changes: -CLON-570 PO; -DSS100 PO; +DULO30CA2 PO; -HYDR-309 PO; -HYDROMORPHONE PO; -IBUP-2070 PO; -IPRA3AMP4 NEB; -ONDA4 PO; -OXYC20 PO; +QUET200T29 PO; -ZOLP10TA7 PO
[2017-07-14] MEDS ORDERED: IBUP-2070 PO (18:14)
[2017-07-14] MEDS ORDERED: PREG75 PO (18:14)
[2017-07-14] MEDS ORDERED: ZOLP10TA7 PO (18:14)
[2017-07-14] MEDS ORDERED: HYDR8TAB2 PO (18:14)
[2017-07-14] MEDS ORDERED: DULO30CA2 PO (18:14)
[2017-07-14] MEDS ORDERED: ONDA4 PO (18:14)
[2017-07-14] MEDS ORDERED: CLON-570 PO (18:14)
[2017-07-14] MEDS ORDERED: HYDR-309 PO (18:14)
[2017-07-14] MEDS ORDERED: NITR100C PO (18:14)
[2017-07-14] MEDS ORDERED: QUEtiapine FUMARATE 100 MG TABLET PO PRN (18:30)
[2017-07-14 18:31] LABS: AMPHET/METH SCREEN,URINE NEGATIVE (NEGATIVE); BARBITURATE SCREEN, URINE NEGATIVE (NEGATIVE); BENZODIAZEPINES SCREEN,URINE NEGATIVE (NEGATIVE); CANNABINOID SCREEN,URINE POSITIVE (NEGATIVE); COCAINE SCREEN,URINE NEGATIVE (NEGATIVE); METHADONE SCREEN, URINE NEGATIVE (NEGATIVE); OPIATE SCREEN,URINE POSITIVE (NEGATIVE)
[2017-07-14 18:36] LABS: PHENCYCLIDINE SCREEN,URINE NEGATIVE (NEGATIVE)
[2017-07-14 18:44] LABS: APPEARANCE,URINE CLEAR (CLEAR); BILIRUBIN,URINE NEGATIVE (NEGATIVE); GLUCOSE, URINE (UA) NEGATIVE (NEGATIVE); KETONES,URINE NEGATIVE (NEGATIVE); LEUKOCYTE ESTERASE ,URINE SMALL (NEGATIVE); NITRATE,URINE NEGATIVE (NEGATIVE); OCCULT BLOOD,URINE NEGATIVE (NEGATIVE); PH,URINE 5.5 (5.0-8.0); PROTEIN,URINE NEGATIVE (NEGATIVE); UROBILINOGEN,URINE 0.2 mg/dL (<=1.0)
[2017-07-14 19:03] LABS: BASOPHILS % (AUTO) 0.2 % (0.0-2.0); EOSINOPHILS % (AUTO) 3.6 % (1.0-6.0); HEMATOCRIT 40.1 % (36-46); HEMOGLOBIN 12.8 g/dL (12.0-16.0); LYMPHOCYTES # (AUTO) 1.8 K/uL (1.0-4.8); LYMPHOCYTES % (AUTO) 34.3 % (22.0-44.0); MEAN CORPUSCULAR HEMOGLOBIN 25.8 pg (26.0-34.0); MEAN CORPUSCULAR VOLUME 81 fL (80-100); MONOCYTES # (AUTO) 0.5 K/uL (0.1-1.0); MONOCYTES % (AUTO) 9.2 % (2.0-9.0); NEUTROPHILS # (AUTO) 2.8 K/uL (1.8-7.7); NEUTROPHILS % (AUTO) 52.7 % (40.0-70.0); PLATELET COUNT (AUTO) 329 K/uL (150-450); RED BLOOD CELL COUNT(AUTO) 4.98 MIL/uL (4.00-5.20); RED CELL DISTRIBUTION WIDTH 15.4 % (11.5-14.5)
[2017-07-14 19:07] LABS: BACTERIA,URINE None Seen /HPF (None Seen); RBC,URINE None Seen /HPF (0-2)
[2017-07-14 19:08] LABS: SQUAMOUS EPITHELIAL CELL,UR Moderate /LPF (None Seen)
[2017-07-14 19:52] LABS: ANION GAP 14 mmol/L (8-16); CALCIUM, TOTAL 9.9 mg/dL (8.8-10.5); CARBON DIOXIDE 24 mmol/L (22-29); CHLORIDE 102 mmol/L (98-107); CREATININE 0.69 mg/dL (0.60-1.30); GLOMERULAR FILTR. RATE CALC > 60 mL/min (>60); GLUCOSE,RANDOM 98 mg/dL (70-110); SODIUM SERUM 140 mmol/L (136-145); UREA NITROGEN, BLOOD 22 mg/dL (7-18)
[2017-07-14 19:57] LABS: ALANINE AMINOTRANSFERASE 19 U/L (12-78); ALBUMIN 3.9 g/dL (3.4-5.0); ALKALINE PHOSPHATASE 87 U/L (46-116); ASPARTATE AMINOTRANSFERASE 14 U/L (15-37); BILIRUBIN,TOTAL 0.5 mg/dL (0.1-1.0); TOTAL PROTEIN, SERUM 7.7 g/dL (6.4-8.2)
[2017-07-14 20:17] LABS: FREE T4 (FREE THYROXINE) 0.86 ng/dL (0.76-1.46); THYROID STIMULATING HORMONE 1.46 uIU/mL (0.36-3.74)
[2017-07-14 20:45] VITALS: BP 158/89
[2017-07-14] MEDS: LevETIRAcetam 500 MG TABLET PO SCH (20:58)
[2017-07-14] MEDS: PREGABALIN 50 MG CAPSULE PO SCH (20:59)
[2017-07-14] MEDS: ACAMPROSATE CALCIUM 333 MG DR TABLET PO SCH (20:59)
[2017-07-14] MEDS: HydrOXYzine PAMOATE 50 MG CAPSULE PO SCH (21:00)
[2017-07-14] MEDS ORDERED: QUEtiapine FUMARATE 200 MG TABLET PO SCH (21:00)
[2017-07-15] MEDS: PANTOPRAZOLE SODIUM 40 MG DR TABLET PO SCH (06:51)
[2017-07-15] MEDS: PREGABALIN 50 MG CAPSULE PO SCH ×2 (08:34→16:17)
[2017-07-15] MEDS: DOCUSATE SODIUM 100 MG CAPSULE PO SCH ×2 (08:34→16:16)
[2017-07-15] MEDS: LevETIRAcetam 500 MG TABLET PO SCH ×2 (08:34→16:16)
[2017-07-15] MEDS: ACAMPROSATE CALCIUM 333 MG DR TABLET PO SCH ×3 (08:35→16:16)
[2017-07-15] MEDS: CIPROFLOXACIN HCL 250 MG TABLET PO SCH ×2 (08:35→16:16)
[2017-07-15] MEDS: DULoxetine HCL 30 MG CAPSULE PO SCH (09:09)
[2017-07-15 09:31] VITALS: BP 130/74
[2017-07-15] MEDS ORDERED: LOPERAMIDE HCL 2 MG CAPSULE PO PRN (11:30)
[2017-07-15] MEDS ORDERED: PROMETHAZINE HCL 25 MG TABLET PO PRN (11:30)
[2017-07-15] MEDS ORDERED: MAGNESIUM HYDROXIDE SUSPENSION 30 ML UDCUP PO PRN (11:30)
[2017-07-15] MEDS ORDERED: ACETAMINOPHEN 325 MG TABLET PO PRN (11:30)
[2017-07-15] MEDS ORDERED: MAG HYDROX/AL HYDROX/SIMETH ES 30 ML SUSPENSION UDCUP PO PRN (11:30)
[2017-07-15] MEDS ORDERED: GuaiFENesin/D-METHORPHAN [SUGAR-FREE] 200-20MG/10 ML SYRUP UDCUP PO PRN (11:30)
[2017-07-15] MEDS ORDERED: HydrOXYzine PAMOATE 50 MG CAPSULE PO PRN (11:30)
[2017-07-15] MEDS ORDERED: CloNIDine HCL 0.1 MG TABLET PO PRN (16:00)
[2017-07-15] MEDS: THIAMINE HCL 100 MG TABLET PO SCH (16:17)
[2017-07-15 17:00] VITALS: BP 138/72
[2017-07-15] MEDS: LORazepam 2 MG TABLET PO PRN (17:11)
[2017-07-15] MEDS: QUEtiapine FUMARATE 100 MG TABLET PO SCH (20:10)
[2017-07-15] MEDS: HydrOXYzine PAMOATE 50 MG CAPSULE PO SCH (20:11)
[2017-07-16] MEDS: PANTOPRAZOLE SODIUM 40 MG DR TABLET PO SCH (06:34)
[2017-07-16] MEDS: DOCUSATE SODIUM 100 MG CAPSULE PO SCH ×2 (09:00→17:28)
[2017-07-16] MEDS: LevETIRAcetam 500 MG TABLET PO SCH ×2 (09:00→17:27)
[2017-07-16] MEDS: FOLIC ACID 1 MG TABLET PO SCH (09:00)
[2017-07-16] MEDS: MULTIVITAMINS WITH MINERALS, THERAPEUTIC TABLET PO SCH (09:00)
[2017-07-16] MEDS: PREGABALIN 50 MG CAPSULE PO SCH (09:00)
[2017-07-16] MEDS: ACAMPROSATE CALCIUM 333 MG DR TABLET PO SCH ×3 (09:00→17:27)
[2017-07-16] MEDS: CIPROFLOXACIN HCL 250 MG TABLET PO SCH ×2 (09:00→17:27)
[2017-07-16] MEDS: THIAMINE HCL 100 MG TABLET PO SCH ×2 (09:00→17:28)
[2017-07-16] MEDS: DULoxetine HCL 30 MG CAPSULE PO SCH (09:00)
[2017-07-16] MEDS: DULoxetine HCL 20 MG CAPSULE PO SCH (09:00)
[2017-07-16] MEDS: AmLODIPine BESYLATE 5 MG TABLET PO SCH (09:00)
[2017-07-16 10:00] VITALS: BP 124/74
[2017-07-16] MEDS ORDERED: PREGABALIN 50 MG CAPSULE PO SCH (17:00)
[2017-07-16 17:19] VITALS: BP 129/81
[2017-07-16] MEDS ORDERED: PREGABALIN 75 MG CAPSULE PO ONE (17:45)
[2017-07-16] MEDS ORDERED: HYDROCODONE/ACETAMINOPHEN 5-325 MG TABLET PO PRN (18:15)
[2017-07-16] MEDS: LORazepam 2 MG TABLET PO PRN (18:34)
[2017-07-16] MEDS: ZOLPIDEM TARTRATE 10 MG TABLET PO PRN (21:01)
[2017-07-16] MEDS: QUEtiapine FUMARATE 100 MG TABLET PO SCH (21:01)
[2017-07-16] MEDS: HydrOXYzine PAMOATE 50 MG CAPSULE PO SCH (21:15)
[2017-07-17] MEDS: PANTOPRAZOLE SODIUM 40 MG DR TABLET PO SCH (06:06)
[2017-07-17 08:14] VITALS: BP 114/64
[2017-07-17] MEDS ORDERED: PREGABALIN 75 MG CAPSULE PO SCH (09:00)
[2017-07-17] MEDS: AmLODIPine BESYLATE 5 MG TABLET PO SCH (09:05)
[2017-07-17] MEDS: PREGABALIN 75 MG CAPSULE PO SCH ×3 (09:05→16:18)
[2017-07-17] MEDS: CIPROFLOXACIN HCL 250 MG TABLET PO SCH ×2 (09:05→16:18)
[2017-07-17] MEDS: DOCUSATE SODIUM 100 MG CAPSULE PO SCH ×2 (09:05→16:19)
[2017-07-17] MEDS: THIAMINE HCL 100 MG TABLET PO SCH ×2 (09:05→16:18)
[2017-07-17] MEDS: MULTIVITAMINS WITH MINERALS, THERAPEUTIC TABLET PO SCH (09:05)
[2017-07-17] MEDS: LevETIRAcetam 500 MG TABLET PO SCH ×2 (09:05→16:19)
[2017-07-17] MEDS: ACAMPROSATE CALCIUM 333 MG DR TABLET PO SCH ×3 (09:05→16:18)
[2017-07-17] MEDS: FOLIC ACID 1 MG TABLET PO SCH (09:05)
[2017-07-17] MEDS: DULoxetine HCL 20 MG CAPSULE PO SCH (09:06)
[2017-07-17 14:33] VITALS: BP 136/78
[2017-07-17] MEDS: LORazepam 2 MG TABLET PO PRN (14:33)
[2017-07-17 17:09] VITALS: BP 135/78
[2017-07-17] MEDS: HydrOXYzine PAMOATE 50 MG CAPSULE PO SCH (21:16)
[2017-07-17] MEDS: QUEtiapine FUMARATE 100 MG TABLET PO SCH (21:16)
[2017-07-17 21:30] VITALS: BP 132/74
[2017-07-17 22:30] VITALS: BP 128/75
[2017-07-18 04:13] VITALS: BP 121/82
[2017-07-18] MEDS: LORazepam 2 MG TABLET PO PRN (06:54)
[2017-07-18] MEDS: PANTOPRAZOLE SODIUM 40 MG DR TABLET PO SCH (06:54)
[2017-07-18 08:00] VITALS: BP 96/50
[2017-07-18] MEDS: LevETIRAcetam 500 MG TABLET PO SCH ×2 (08:39→16:32)
[2017-07-18] MEDS: MULTIVITAMINS WITH MINERALS, THERAPEUTIC TABLET PO SCH (08:39)
[2017-07-18] MEDS: PREGABALIN 75 MG CAPSULE PO SCH ×3 (08:40→16:31)
[2017-07-18] MEDS: DOCUSATE SODIUM 100 MG CAPSULE PO SCH ×2 (08:40→16:32)
[2017-07-18] MEDS: CIPROFLOXACIN HCL 250 MG TABLET PO SCH ×2 (08:40→16:30)
[2017-07-18] MEDS: DULoxetine HCL 20 MG CAPSULE PO SCH (08:40)
[2017-07-18] MEDS: FOLIC ACID 1 MG TABLET PO SCH (08:40)
[2017-07-18] MEDS: THIAMINE HCL 100 MG TABLET PO SCH ×2 (08:40→16:30)
[2017-07-18] MEDS: ACAMPROSATE CALCIUM 333 MG DR TABLET PO SCH ×3 (08:40→16:30)
[2017-07-18] MEDS: AmLODIPine BESYLATE 5 MG TABLET PO SCH (09:00)
[2017-07-18 13:17] VITALS: BP 119/88
[2017-07-18 19:00] VITALS: BP 126/76
[2017-07-18 20:00] VITALS: BP 118/69
[2017-07-18] MEDS: QUEtiapine FUMARATE 100 MG TABLET PO SCH (20:07)
[2017-07-18] MEDS: HydrOXYzine PAMOATE 50 MG CAPSULE PO SCH (20:08)
[2017-07-18] MEDS: ZOLPIDEM TARTRATE 10 MG TABLET PO PRN (21:37)
[2017-07-19 03:11] VITALS: BP 139/85
[2017-07-19] MEDS: LORazepam 2 MG TABLET PO PRN ×3 (03:11→14:35)
[2017-07-19] MEDS: PANTOPRAZOLE SODIUM 40 MG DR TABLET PO SCH (07:14)
[2017-07-19 08:59] VITALS: BP 112/76
[2017-07-19] MEDS: ACAMPROSATE CALCIUM 333 MG DR TABLET PO SCH ×3 (09:05→16:20)
[2017-07-19] MEDS: DOCUSATE SODIUM 100 MG CAPSULE PO SCH ×2 (09:05→16:21)
[2017-07-19] MEDS: FOLIC ACID 1 MG TABLET PO SCH (09:05)
[2017-07-19] MEDS: CIPROFLOXACIN HCL 250 MG TABLET PO SCH ×2 (09:05→16:19)
[2017-07-19] MEDS: DULoxetine HCL 20 MG CAPSULE PO SCH (09:05)
[2017-07-19] MEDS: MULTIVITAMINS WITH MINERALS, THERAPEUTIC TABLET PO SCH (09:06)
[2017-07-19] MEDS: LevETIRAcetam 500 MG TABLET PO SCH ×2 (09:06→16:21)
[2017-07-19] MEDS: PREGABALIN 75 MG CAPSULE PO SCH ×3 (09:06→16:20)
[2017-07-19] MEDS: AmLODIPine BESYLATE 5 MG TABLET PO SCH (09:06)
[2017-07-19] MEDS: THIAMINE HCL 100 MG TABLET PO SCH ×2 (09:07→16:19)
[2017-07-19 16:20] VITALS: BP 118/72
[2017-07-19 17:20] VITALS: BP 123/71
[2017-07-19] MEDS: QUEtiapine FUMARATE 100 MG TABLET PO SCH (20:47)
[2017-07-19] MEDS: ZOLPIDEM TARTRATE 10 MG TABLET PO PRN (20:48)
[2017-07-19] MEDS: HydrOXYzine PAMOATE 50 MG CAPSULE PO SCH (20:48)
[2017-07-20 04:53] VITALS: BP 145/82
[2017-07-20] MEDS: LORazepam 2 MG TABLET PO PRN ×3 (04:55→20:17)
[2017-07-20] MEDS: PANTOPRAZOLE SODIUM 40 MG DR TABLET PO SCH (06:46)
[2017-07-20] MEDS: CIPROFLOXACIN HCL 250 MG TABLET PO SCH ×2 (09:09→16:31)
[2017-07-20] MEDS: LevETIRAcetam 500 MG TABLET PO SCH ×2 (09:09→16:31)
[2017-07-20] MEDS: FOLIC ACID 1 MG TABLET PO SCH (09:09)
[2017-07-20] MEDS: MULTIVITAMINS WITH MINERALS, THERAPEUTIC TABLET PO SCH (09:09)
[2017-07-20] MEDS: PREGABALIN 75 MG CAPSULE PO SCH ×3 (09:09→16:29)
[2017-07-20] MEDS: THIAMINE HCL 100 MG TABLET PO SCH ×2 (09:09→16:29)
[2017-07-20] MEDS: ACAMPROSATE CALCIUM 333 MG DR TABLET PO SCH ×3 (09:09→16:29)
[2017-07-20] MEDS: DOCUSATE SODIUM 100 MG CAPSULE PO SCH ×2 (09:09→16:30)
[2017-07-20] MEDS: DULoxetine HCL 20 MG CAPSULE PO SCH (09:09)
[2017-07-20] MEDS: AmLODIPine BESYLATE 5 MG TABLET PO SCH (09:10)
[2017-07-20 10:42] VITALS: BP 112/60
[2017-07-20 12:48] VITALS: BP 125/87
[2017-07-20] MEDS: HydrOXYzine PAMOATE 50 MG CAPSULE PO SCH (20:16)
[2017-07-20] MEDS: QUEtiapine FUMARATE 100 MG TABLET PO SCH (20:16)
[2017-07-20 20:21] VITALS: BP 123/78
[2017-07-20] MEDS: ZOLPIDEM TARTRATE 10 MG TABLET PO PRN (21:24)
[2017-07-21] MEDS: PANTOPRAZOLE SODIUM 40 MG DR TABLET PO SCH (07:24)
[2017-07-21 08:00] VITALS: BP 95/53
[2017-07-21] MEDS: AmLODIPine BESYLATE 5 MG TABLET PO SCH (09:00)
[2017-07-21] MEDS: PREGABALIN 75 MG CAPSULE PO SCH ×3 (09:16→16:20)
[2017-07-21] MEDS: DULoxetine HCL 20 MG CAPSULE PO SCH (09:16)
[2017-07-21] MEDS: MULTIVITAMINS WITH MINERALS, THERAPEUTIC TABLET PO SCH (09:17)
[2017-07-21] MEDS: DOCUSATE SODIUM 100 MG CAPSULE PO SCH ×2 (09:17→16:21)
[2017-07-21] MEDS: LevETIRAcetam 500 MG TABLET PO SCH ×2 (09:17→16:21)
[2017-07-21] MEDS: CIPROFLOXACIN HCL 250 MG TABLET PO SCH ×2 (09:17→16:21)
[2017-07-21] MEDS: ACAMPROSATE CALCIUM 333 MG DR TABLET PO SCH ×3 (09:17→16:21)
[2017-07-21] MEDS: THIAMINE HCL 100 MG TABLET PO SCH ×2 (09:17→16:20)
[2017-07-21] MEDS: FOLIC ACID 1 MG TABLET PO SCH (09:18)
[2017-07-21] MEDS: LORazepam 2 MG TABLET PO PRN (12:08)
[2017-07-21] MEDS ORDERED: LACTULOSE 20 GM/30 ML SOLUTION UDCUP PO PRN (13:45)
[2017-07-21] MEDS ORDERED: LEVE500T53 PO (15:58)
[2017-07-21] MEDS ORDERED: VIST50 PO (15:58)
[2017-07-21] MEDS ORDERED: DULO20CA30 PO (15:58)
[2017-07-21] MEDS ORDERED: QUET100T33 PO (15:58)
[2017-07-21] MEDS ORDERED: PREG75 PO (15:58)
[2017-07-21] MEDS ORDERED: ACAM333T7 PO (15:58)
[2017-07-21] MEDS: HydrOXYzine PAMOATE 50 MG CAPSULE PO SCH (20:09)
[2017-07-21] MEDS: QUEtiapine FUMARATE 100 MG TABLET PO SCH (20:09)
[2017-07-21] MEDS: ZOLPIDEM TARTRATE 10 MG TABLET PO PRN (21:02)
[2017-07-22 05:15] VITALS: BP 128/80
[2017-07-22] MEDS: LORazepam 2 MG TABLET PO PRN ×3 (05:23→16:15)
[2017-07-22] MEDS: PANTOPRAZOLE SODIUM 40 MG DR TABLET PO SCH (07:06)
[2017-07-22 08:30] VITALS: BP 134/77
[2017-07-22] MEDS ORDERED: AMLO2.5T PO (09:03)
[2017-07-22] MEDS ORDERED: DSS100 PO (09:04)
[2017-07-22] MEDS: AmLODIPine BESYLATE 5 MG TABLET PO SCH (09:17)
[2017-07-22] MEDS: MULTIVITAMINS WITH MINERALS, THERAPEUTIC TABLET PO SCH (09:17)
[2017-07-22] MEDS: LevETIRAcetam 500 MG TABLET PO SCH ×2 (09:17→16:17)
[2017-07-22] MEDS: DOCUSATE SODIUM 100 MG CAPSULE PO SCH ×2 (09:18→16:16)
[2017-07-22] MEDS: ACAMPROSATE CALCIUM 333 MG DR TABLET PO SCH ×3 (09:18→16:16)
[2017-07-22] MEDS: DULoxetine HCL 20 MG CAPSULE PO SCH (09:18)
[2017-07-22] MEDS: THIAMINE HCL 100 MG TABLET PO SCH ×2 (09:18→16:17)
[2017-07-22] MEDS: PREGABALIN 75 MG CAPSULE PO SCH ×3 (09:19→16:17)
[2017-07-22] MEDS: FOLIC ACID 1 MG TABLET PO SCH (09:19)
[2017-07-22 12:48] VITALS: BP 121/86
[2017-07-22 20:17] VITALS: BP 123/83
[2017-07-22] MEDS: QUEtiapine FUMARATE 100 MG TABLET PO SCH (20:19)
[2017-07-22] MEDS: HydrOXYzine PAMOATE 50 MG CAPSULE PO SCH (20:19)
[2017-07-22] MEDS: ZOLPIDEM TARTRATE 10 MG TABLET PO PRN (21:12)
[2017-07-22 21:17] VITALS: BP 130/78
[2017-07-23 04:05] VITALS: BP 124/90
[2017-07-23] MEDS: LORazepam 2 MG TABLET PO PRN (04:05)
[2017-07-23] MEDS: PANTOPRAZOLE SODIUM 40 MG DR TABLET PO SCH (07:21)
[2017-07-23] MEDS: PREGABALIN 75 MG CAPSULE PO SCH ×3 (08:40→16:01)
[2017-07-23] MEDS: FOLIC ACID 1 MG TABLET PO SCH (08:41)
[2017-07-23] MEDS: THIAMINE HCL 100 MG TABLET PO SCH ×2 (08:41→16:01)
[2017-07-23] MEDS: DOCUSATE SODIUM 100 MG CAPSULE PO SCH ×2 (08:41→16:03)
[2017-07-23] MEDS: DULoxetine HCL 20 MG CAPSULE PO SCH (08:41)
[2017-07-23] MEDS: AmLODIPine BESYLATE 5 MG TABLET PO SCH (08:41)
[2017-07-23] MEDS: ACAMPROSATE CALCIUM 333 MG DR TABLET PO SCH ×3 (08:41→16:03)
[2017-07-23] MEDS: MULTIVITAMINS WITH MINERALS, THERAPEUTIC TABLET PO SCH (08:41)
[2017-07-23] MEDS: LevETIRAcetam 500 MG TABLET PO SCH ×2 (08:41→16:03)
[2017-07-23 09:19] VITALS: BP 94/60
[2017-07-23 12:15] VITALS: BP 103/68
[2017-07-23] MEDS ORDERED: GABAPENTIN 300 MG CAPSULE PO PRN (14:15)
[2017-07-23 16:25] VITALS: BP 126/86
[2017-07-23 18:41] VITALS: BP 136/78
[2017-07-23] MEDS: QUEtiapine FUMARATE 100 MG TABLET PO SCH (20:13)
[2017-07-23] MEDS: HydrOXYzine PAMOATE 50 MG CAPSULE PO SCH (20:13)
[2017-07-23] MEDS: ZOLPIDEM TARTRATE 10 MG TABLET PO PRN (20:35)
[2017-07-24 01:45] VITALS: BP_SYST 113; BP_SYST 94; BP_DIAS 50; BP_DIAS 80
[2017-07-24] MEDS: PANTOPRAZOLE SODIUM 40 MG DR TABLET PO SCH (07:02)
[2017-07-24] MEDS: DOCUSATE SODIUM 100 MG CAPSULE PO SCH (08:27)
[2017-07-24] MEDS: DULoxetine HCL 20 MG CAPSULE PO SCH (08:27)
[2017-07-24] MEDS: ACAMPROSATE CALCIUM 333 MG DR TABLET PO SCH ×2 (08:28→12:55)
[2017-07-24] MEDS: AmLODIPine BESYLATE 5 MG TABLET PO SCH (08:28)
[2017-07-24] MEDS: PREGABALIN 75 MG CAPSULE PO SCH ×2 (08:28→12:55)
[2017-07-24] MEDS: FOLIC ACID 1 MG TABLET PO SCH (08:28)
[2017-07-24] MEDS: LevETIRAcetam 500 MG TABLET PO SCH (08:28)
[2017-07-24] MEDS: MULTIVITAMINS WITH MINERALS, THERAPEUTIC TABLET PO SCH (08:29)
[2017-07-24] MEDS: THIAMINE HCL 100 MG TABLET PO SCH (08:29)
== END 2017-07-24 15:10 | disposition home or self-care (01) ==
LOC: EMS 16:09 → 3EX 20:29 → INTOOBSV 20:29
PROVIDERS: ADMIT Psychiatry & Neurology Psychiatry; ATTEND Psychiatry & Neurology Psychiatry
DX: F25.9 Schizoaffective disorder, unspecified (principal); F11.20 Opioid dependence, uncomplicated; G40.909 Epilepsy, unspecified, not intractable, without status epilepticus; G89.4 Chronic pain syndrome; I10 Essential (primary) hypertension; J44.9 Chronic obstructive pulmonary disease, unspecified; K21.9 Gastro-esophageal reflux disease without esophagitis; K59.00 Constipation, unspecified; M79.7 Fibromyalgia; N31.9 Neuromuscular dysfunction of bladder, unspecified; N39.0 Urinary tract infection, site not specified; R45.851 Suicidal ideations; F17.200 Nicotine dependence, unspecified, uncomplicated; F12.90 Cannabis use, unspecified, uncomplicated; S00.83XA Contusion of other part of head, initial encounter; X58.XXXA Exposure to other specified factors, initial encounter; Y93.89 Activity, other specified; Y92.89 Other specified places as the place of occurrence of the external cause; Y99.8 Other external cause status; Z90.49 Acquired absence of other specified parts of digestive tract; Z91.19 Patient's noncompliance with other medical treatment and regimen
CPT/HCPCS: 36415; 70150; 80053; 80307; 81001; 84439; 84443; 85025; 93005; 99285; G0378 ×4; G0480

== ENCOUNTER 2017-07-27 11:13 | Inpatient (IN) | payer MEDICARE, MEDICAID ==
[~2017-07-27] VITALS: Ht 170.2 cm; Wt 86.9 kg
[~2017-07-27 11:13] MED LIST changes: +AMLO2.5T PO; -CYCL10 PO; -DIVA250T45 PO; +DSS100 PO; +DULO20CA30 PO; -DULO30CA2 PO; -DULO60CA44 PO; -NALO25TA PO; -PREG50 PO; +PREG75 PO; +QUET100T33 PO; -QUET200T29 PO; -QUET300T18 PO
[2017-07-27] MEDS ORDERED: LOPERAMIDE HCL 2 MG CAPSULE PO PRN (14:00)
[2017-07-27] MEDS ORDERED: LORazepam 2 MG TABLET PO PRN (14:00)
[2017-07-27] MEDS ORDERED: MAG HYDROX/AL HYDROX/SIMETH ES 30 ML SUSPENSION UDCUP PO PRN ×2 (14:00)
[2017-07-27] MEDS ORDERED: MAGNESIUM HYDROXIDE SUSPENSION 30 ML UDCUP PO PRN (14:00)
[2017-07-27] MEDS ORDERED: ACETAMINOPHEN 325 MG TABLET PO PRN (14:00)
[2017-07-27] MEDS ORDERED: PROMETHAZINE HCL 25 MG TABLET PO PRN (14:00)
[2017-07-27] MEDS ORDERED: GuaiFENesin/D-METHORPHAN [SUGAR-FREE] 200-20MG/10 ML SYRUP UDCUP PO PRN (14:00)
[2017-07-27] MEDS ORDERED: QUEtiapine FUMARATE 100 MG TABLET PO PRN (14:00)
[2017-07-27] MEDS ORDERED: HydrOXYzine PAMOATE 50 MG CAPSULE PO PRN ×2 (14:00)
[2017-07-27] MEDS ORDERED: CloNIDine HCL 0.1 MG TABLET PO PRN (14:00)
[2017-07-27] MEDS ORDERED: QUET300T2 PO (14:08)
[2017-07-27 14:17] LABS: BASOPHILS % (AUTO) 1.2 % (0.0-2.0); EOSINOPHILS % (AUTO) 5.5 % (1.0-6.0); HEMOGLOBIN 12.3 g/dL (12.0-16.0); LYMPHOCYTES # (AUTO) 1.7 K/uL (1.0-4.8); LYMPHOCYTES % (AUTO) 41.9 % (22.0-44.0); MEAN CORPUSCULAR HEMOGLOBIN 26.2 pg (26.0-34.0); MEAN CORPUSCULAR HGB CONC 32.5 G/dL (31.0-37.0); MEAN CORPUSCULAR VOLUME 81 fL (80-100); MONOCYTES # (AUTO) 0.4 K/uL (0.1-1.0); NEUTROPHILS # (AUTO) 1.7 K/uL (1.8-7.7); NEUTROPHILS % (AUTO) 41.4 % (40.0-70.0); PLATELET COUNT (AUTO) 306 K/uL (150-450); RED BLOOD CELL COUNT(AUTO) 4.71 MIL/uL (4.00-5.20); RED CELL DISTRIBUTION WIDTH 15.4 % (11.5-14.5)
[2017-07-27 14:33] LABS: ANION GAP 10 mmol/L (8-16); CALCIUM, TOTAL 9.2 mg/dL (8.8-10.5); CARBON DIOXIDE 28 mmol/L (22-29); CHLORIDE 101 mmol/L (98-107); CREATININE 0.73 mg/dL (0.60-1.30); GLOMERULAR FILTR. RATE CALC > 60 mL/min (>60); GLUCOSE,RANDOM 97 mg/dL (70-110); SODIUM SERUM 139 mmol/L (136-145); UREA NITROGEN, BLOOD 13 mg/dL (7-18)
[2017-07-27 14:39] LABS: ALANINE AMINOTRANSFERASE 19 U/L (12-78); ALBUMIN 3.5 g/dL (3.4-5.0); ALKALINE PHOSPHATASE 86 U/L (46-116); ASPARTATE AMINOTRANSFERASE 15 U/L (15-37); BILIRUBIN,TOTAL 0.4 mg/dL (0.1-1.0); HCG,QUANTITATIVE < 1 mIU/mL (0-6); TOTAL PROTEIN, SERUM 7.4 g/dL (6.4-8.2)
[2017-07-27 15:35] LABS: AMPHET/METH SCREEN,URINE NEGATIVE (NEGATIVE); BARBITURATE SCREEN, URINE NEGATIVE (NEGATIVE); BENZODIAZEPINES SCREEN,URINE NEGATIVE (NEGATIVE); CANNABINOID SCREEN,URINE NEGATIVE (NEGATIVE); COCAINE SCREEN,URINE NEGATIVE (NEGATIVE); METHADONE SCREEN, URINE NEGATIVE (NEGATIVE); OPIATE SCREEN,URINE POSITIVE (NEGATIVE)
[2017-07-27 15:38] LABS: PHENCYCLIDINE SCREEN,URINE NEGATIVE (NEGATIVE)
[2017-07-27 16:30] VITALS: BP 139/82
[2017-07-27] MEDS: CloNIDine HCL 0.1 MG TABLET PO SCH ×2 (17:00→21:29)
[2017-07-27] MEDS: PREGABALIN 75 MG CAPSULE PO SCH (17:13)
[2017-07-27] MEDS: THIAMINE HCL 100 MG TABLET PO SCH (17:14)
[2017-07-27] MEDS: ACAMPROSATE CALCIUM 333 MG DR TABLET PO SCH (17:14)
[2017-07-27] MEDS: LevETIRAcetam 500 MG TABLET PO SCH (17:15)
[2017-07-27 17:30] VITALS: BP 132/79
[2017-07-27 18:30] VITALS: BP 129/77
[2017-07-27 20:36] VITALS: BP 134/79
[2017-07-27] MEDS: QUEtiapine FUMARATE 300 MG TABLET PO SCH (20:39)
[2017-07-27] MEDS: HydrOXYzine PAMOATE 50 MG CAPSULE PO SCH (20:40)
[2017-07-27 21:21] VITALS: BP 131/82
[2017-07-27] MEDS: ZOLPIDEM TARTRATE 10 MG TABLET PO PRN (21:25)
[2017-07-27 21:27] VITALS: BP 128/78
[2017-07-27] MEDS: IBUPROFEN 600 MG TABLET PO PRN (21:27)
[2017-07-28 06:33] VITALS: BP 106/68
[2017-07-28] MEDS: CloNIDine HCL 0.1 MG TABLET PO SCH (06:38)
[2017-07-28] MEDS: DULoxetine HCL 20 MG CAPSULE PO SCH (10:09)
[2017-07-28] MEDS: ACAMPROSATE CALCIUM 333 MG DR TABLET PO SCH ×3 (10:09→16:24)
[2017-07-28] MEDS: PREGABALIN 75 MG CAPSULE PO SCH ×3 (10:09→16:24)
[2017-07-28] MEDS: FOLIC ACID 1 MG TABLET PO SCH (10:09)
[2017-07-28] MEDS: THIAMINE HCL 100 MG TABLET PO SCH ×2 (10:09→16:24)
[2017-07-28] MEDS: LevETIRAcetam 500 MG TABLET PO SCH ×2 (10:09→16:24)
[2017-07-28] MEDS: MULTIVITAMINS WITH MINERALS, THERAPEUTIC TABLET PO SCH (10:10)
[2017-07-28] MEDS ORDERED: GABAPENTIN 300 MG CAPSULE PO PRN (11:15)
[2017-07-28] MEDS ORDERED: HYDROCODONE/ACETAMINOPHEN 5-325 MG TABLET PO PRN (11:45)
[2017-07-28] MEDS: DOCUSATE SODIUM 100 MG CAPSULE PO SCH (16:24)
[2017-07-28 17:15] VITALS: BP 132/84
[2017-07-28 18:15] VITALS: BP 126/71
[2017-07-28] MEDS: QUEtiapine FUMARATE 300 MG TABLET PO SCH (20:06)
[2017-07-28] MEDS: HydrOXYzine PAMOATE 50 MG CAPSULE PO SCH (20:07)
[2017-07-28] MEDS: ZOLPIDEM TARTRATE 10 MG TABLET PO PRN (21:06)
[2017-07-29 03:39] VITALS: BP 130/92
[2017-07-29] MEDS: PANTOPRAZOLE SODIUM 40 MG DR TABLET PO SCH (06:54)
[2017-07-29] MEDS: MULTIVITAMINS WITH MINERALS, THERAPEUTIC TABLET PO SCH (08:14)
[2017-07-29] MEDS: LevETIRAcetam 500 MG TABLET PO SCH ×2 (08:14→16:26)
[2017-07-29] MEDS: DOCUSATE SODIUM 100 MG CAPSULE PO SCH ×2 (08:14→16:26)
[2017-07-29] MEDS: PREGABALIN 75 MG CAPSULE PO SCH ×3 (08:15→16:29)
[2017-07-29] MEDS: AmLODIPine BESYLATE 2.5 MG TABLET PO SCH (08:15)
[2017-07-29] MEDS: DULoxetine HCL 20 MG CAPSULE PO SCH (08:15)
[2017-07-29] MEDS: ACAMPROSATE CALCIUM 333 MG DR TABLET PO SCH ×3 (08:15→16:26)
[2017-07-29] MEDS: FOLIC ACID 1 MG TABLET PO SCH (08:15)
[2017-07-29 08:16] VITALS: BP 120/73
[2017-07-29] MEDS: THIAMINE HCL 100 MG TABLET PO SCH ×2 (08:16→16:27)
[2017-07-29] MEDS: IBUPROFEN 600 MG TABLET PO PRN (08:16)
[2017-07-29 09:45] VITALS: BP 120/73
[2017-07-29 10:02] VITALS: BP 122/87
[2017-07-29] MEDS ORDERED: ESZOPICLONE 3 MG TABLET PO PRN (11:45)
[2017-07-29 16:51] VITALS: BP 124/80
[2017-07-29] MEDS: QUEtiapine FUMARATE 300 MG TABLET PO SCH (20:20)
[2017-07-29] MEDS: HydrOXYzine PAMOATE 50 MG CAPSULE PO SCH (20:20)
[2017-07-30] MEDS: PANTOPRAZOLE SODIUM 40 MG DR TABLET PO SCH (06:27)
[2017-07-30] MEDS: LevETIRAcetam 500 MG TABLET PO SCH ×2 (08:52→17:43)
[2017-07-30] MEDS: MULTIVITAMINS WITH MINERALS, THERAPEUTIC TABLET PO SCH (08:52)
[2017-07-30] MEDS: PREGABALIN 75 MG CAPSULE PO SCH ×3 (08:52→17:43)
[2017-07-30] MEDS: DOCUSATE SODIUM 100 MG CAPSULE PO SCH ×2 (08:53→17:43)
[2017-07-30] MEDS: ACAMPROSATE CALCIUM 333 MG DR TABLET PO SCH ×3 (08:53→17:43)
[2017-07-30] MEDS: AmLODIPine BESYLATE 2.5 MG TABLET PO SCH (08:54)
[2017-07-30] MEDS: THIAMINE HCL 100 MG TABLET PO SCH ×2 (08:54→17:43)
[2017-07-30] MEDS: DULoxetine HCL 20 MG CAPSULE PO SCH (08:54)
[2017-07-30] MEDS: FOLIC ACID 1 MG TABLET PO SCH (08:54)
[2017-07-30 09:30] VITALS: BP 123/70
[2017-07-30 11:25] VITALS: BP 134/89
[2017-07-30 12:30] VITALS: BP 100/79
[2017-07-30] MEDS ORDERED: ESZO3 PO (16:35)
[2017-07-30] MEDS ORDERED: GABA-531 PO (16:35)
[2017-07-30] MEDS ORDERED: PREG75 PO (16:35)
[2017-07-30] MEDS ORDERED: DULO20CA30 PO (16:35)
[2017-07-30] MEDS ORDERED: ACAM333T7 PO (16:35)
[2017-07-30] MEDS ORDERED: LEVE500T53 PO (16:35)
[2017-07-30] MEDS ORDERED: QUET300T18 PO (16:35)
[2017-07-30 17:40] VITALS: BP 121/79
[2017-07-30 18:40] VITALS: BP 126/71
[2017-07-30] MEDS: QUEtiapine FUMARATE 300 MG TABLET PO SCH (21:00)
[2017-07-30] MEDS: HydrOXYzine PAMOATE 50 MG CAPSULE PO SCH (21:08)
[2017-07-31 05:06] VITALS: BP 131/84
[2017-07-31] MEDS: PANTOPRAZOLE SODIUM 40 MG DR TABLET PO SCH (07:00)
[2017-07-31] MEDS ORDERED: VIST50 PO (08:42)
[2017-07-31 09:31] VITALS: BP 128/87
[2017-07-31] MEDS: THIAMINE HCL 100 MG TABLET PO SCH (10:02)
[2017-07-31] MEDS: MULTIVITAMINS WITH MINERALS, THERAPEUTIC TABLET PO SCH (10:02)
[2017-07-31] MEDS: DOCUSATE SODIUM 100 MG CAPSULE PO SCH (10:02)
[2017-07-31] MEDS: LevETIRAcetam 500 MG TABLET PO SCH (10:02)
[2017-07-31] MEDS: ACAMPROSATE CALCIUM 333 MG DR TABLET PO SCH ×2 (10:03→12:35)
[2017-07-31] MEDS: PREGABALIN 75 MG CAPSULE PO SCH ×2 (10:03→12:35)
[2017-07-31] MEDS: FOLIC ACID 1 MG TABLET PO SCH (10:03)
[2017-07-31] MEDS: AmLODIPine BESYLATE 2.5 MG TABLET PO SCH (10:03)
[2017-07-31] MEDS: DULoxetine HCL 20 MG CAPSULE PO SCH (10:04)
[2017-07-31 12:41] VITALS: BP 122/74
[2017-07-31 13:43] VITALS: BP 124/79
== END 2017-07-31 14:00 | disposition home or self-care (01) | DRG 885 ==
LOC: EMS 11:16 → 3EX 14:41
PROVIDERS: ADMIT Psychiatry & Neurology Psychiatry; ATTEND Psychiatry & Neurology Psychiatry
DX: F25.0 Schizoaffective disorder, bipolar type (principal); N31.9 Neuromuscular dysfunction of bladder, unspecified; R45.851 Suicidal ideations; G40.909 Epilepsy, unspecified, not intractable, without status epilepticus; F11.20 Opioid dependence, uncomplicated; Z59.0 Homelessness; F41.9 Anxiety disorder, unspecified; G89.4 Chronic pain syndrome; I10 Essential (primary) hypertension; J44.9 Chronic obstructive pulmonary disease, unspecified; K21.9 Gastro-esophageal reflux disease without esophagitis; K59.00 Constipation, unspecified; M79.7 Fibromyalgia; F60.3 Borderline personality disorder; Z91.19 Patient's noncompliance with other medical treatment and regimen; Z87.440 Personal history of urinary (tract) infections; Z87.820 Personal history of traumatic brain injury; Z88.0 Allergy status to penicillin; Z88.8 Allergy status to other drugs, medicaments and biological substances; Z90.49 Acquired absence of other specified parts of digestive tract; Z79.899 Other long term (current) drug therapy
CPT/HCPCS: 87081; 99285; G0480

== ENCOUNTER 2017-08-01 11:16 | Inpatient (IN) | payer MEDICARE, MEDICAID ==
[~2017-08-01] VITALS: Ht 170.2 cm; Wt 86.9 kg
[~2017-08-01 11:16] MED LIST changes: +ESZO3 PO; +GABA-531 PO; -QUET100T33 PO; +QUET300T18 PO; +QUET300T2 PO
[2017-08-01 13:20] LABS: AMPHET/METH SCREEN,URINE NEGATIVE (NEGATIVE); BARBITURATE SCREEN, URINE NEGATIVE (NEGATIVE); BENZODIAZEPINES SCREEN,URINE NEGATIVE (NEGATIVE); CANNABINOID SCREEN,URINE POSITIVE (NEGATIVE); COCAINE SCREEN,URINE NEGATIVE (NEGATIVE); METHADONE SCREEN, URINE NEGATIVE (NEGATIVE); OPIATE SCREEN,URINE POSITIVE (NEGATIVE); PHENCYCLIDINE SCREEN,URINE NEGATIVE (NEGATIVE)
[2017-08-01 16:33] LABS: EOSINOPHILS % (AUTO) 0.5 % (1.0-6.0); HEMATOCRIT 39.6 % (36-46); HEMOGLOBIN 12.8 g/dL (12.0-16.0); LYMPHOCYTES # (AUTO) 0.8 K/uL (1.0-4.8); LYMPHOCYTES % (AUTO) 17.8 % (22.0-44.0); MEAN CORPUSCULAR HEMOGLOBIN 25.8 pg (26.0-34.0); MEAN CORPUSCULAR HGB CONC 32.3 G/dL (31.0-37.0); MEAN CORPUSCULAR VOLUME 80 fL (80-100); MONOCYTES # (AUTO) 0.2 K/uL (0.1-1.0); MONOCYTES % (AUTO) 4.6 % (2.0-9.0); NEUTROPHILS # (AUTO) 3.4 K/uL (1.8-7.7); NEUTROPHILS % (AUTO) 76.1 % (40.0-70.0); PLATELET COUNT (AUTO) 294 K/uL (150-450); RED BLOOD CELL COUNT(AUTO) 4.97 MIL/uL (4.00-5.20); RED CELL DISTRIBUTION WIDTH 15.2 % (11.5-14.5)
[2017-08-01 16:50] LABS: ANION GAP 12 mmol/L (8-16); CALCIUM, TOTAL 9.3 mg/dL (8.8-10.5); CARBON DIOXIDE 26 mmol/L (22-29); CHLORIDE 103 mmol/L (98-107); CREATININE 0.57 mg/dL (0.60-1.30); GLOMERULAR FILTR. RATE CALC > 60 mL/min (>60); GLUCOSE,RANDOM 134 mg/dL (70-110); POTASSIUM 3.8 mmol/L (3.5-5.1); SODIUM SERUM 141 mmol/L (136-145); UREA NITROGEN, BLOOD 11 mg/dL (7-18)
[2017-08-01 16:57] LABS: ALANINE AMINOTRANSFERASE 24 U/L (12-78); ALBUMIN 3.7 g/dL (3.4-5.0); ALKALINE PHOSPHATASE 90 U/L (46-116); ASPARTATE AMINOTRANSFERASE 23 U/L (15-37); BILIRUBIN,TOTAL 0.4 mg/dL (0.1-1.0); TOTAL PROTEIN, SERUM 7.4 g/dL (6.4-8.2)
[2017-08-01 17:25] LABS: APPEARANCE,URINE TURBID (CLEAR); BILIRUBIN,URINE NEGATIVE (NEGATIVE); GLUCOSE, URINE (UA) NEGATIVE (NEGATIVE); KETONES,URINE NEGATIVE (NEGATIVE); LEUKOCYTE ESTERASE ,URINE MODERATE (NEGATIVE); NITRATE,URINE POSITIVE (NEGATIVE); OCCULT BLOOD,URINE NEGATIVE (NEGATIVE); PROTEIN,URINE NEGATIVE (NEGATIVE); UROBILINOGEN,URINE 0.2 mg/dL (<=1.0)
[2017-08-01 17:33] LABS: RBC,URINE 0-2 /HPF (0-2)
[2017-08-01 17:34] LABS: AMORPHOUS SEDIMENT,UR Many /LPF (None Seen); BACTERIA,URINE Many /HPF (None Seen); SQUAMOUS EPITHELIAL CELL,UR Few /LPF (None Seen)
[2017-08-01] MEDS ORDERED: CIPROFLOXACIN HCL 250 MG TABLET PO ONE (17:45)
[2017-08-01] MEDS ORDERED: KETOROLAC TROMETHAMINE 60 MG/2 ML VIAL IM ONE (18:00)
[2017-08-01] MEDS ORDERED: QUEtiapine FUMARATE 100 MG TABLET PO PRN (19:00)
[2017-08-01] MEDS ORDERED: OxyCODONE HCL/ACETAMINOPHEN 5-325 MG TABLET PO ONE (19:15)
[2017-08-01] MEDS ORDERED: PNEUMOCOCCAL VACCINE POLYVALENT 0.5 ML VIAL [PPSV23] IM ONE (21:45)
[2017-08-01] MEDS ORDERED: -PHARMACY VACCINE NOTE- MISC ONE (21:45)
[2017-08-01 21:49] VITALS: BP 142/85
[2017-08-01] MEDS: QUEtiapine FUMARATE 300 MG TABLET PO SCH (21:49)
[2017-08-01] MEDS: LevETIRAcetam 500 MG TABLET PO SCH (21:49)
[2017-08-01] MEDS: ESZOPICLONE 3 MG TABLET PO SCH (21:49)
[2017-08-01] MEDS: HydrOXYzine PAMOATE 50 MG CAPSULE PO SCH (21:50)
[2017-08-01] MEDS: ZOLPIDEM TARTRATE 10 MG TABLET PO PRN (23:13)
[2017-08-02] MEDS: CIPROFLOXACIN HCL 500 MG TABLET PO SCH (08:53)
[2017-08-02] MEDS: LevETIRAcetam 500 MG TABLET PO SCH ×2 (08:53→16:46)
[2017-08-02] MEDS: DULoxetine HCL 20 MG CAPSULE PO SCH (08:53)
[2017-08-02 10:42] VITALS: BP 116/76
[2017-08-02 16:23] VITALS: BP 138/86
[2017-08-02] MEDS: AmLODIPine BESYLATE 2.5 MG TABLET PO SCH (16:46)
[2017-08-02] MEDS: ESZOPICLONE 3 MG TABLET PO SCH (21:12)
[2017-08-02] MEDS: HydrOXYzine PAMOATE 50 MG CAPSULE PO SCH (21:12)
[2017-08-02] MEDS: QUEtiapine FUMARATE 300 MG TABLET PO SCH (21:12)
[2017-08-03 01:22] VITALS: BP 110/65
[2017-08-03 08:45] VITALS: BP 110/78
[2017-08-03] MEDS: LevETIRAcetam 500 MG TABLET PO SCH ×2 (08:45→16:38)
[2017-08-03] MEDS: DULoxetine HCL 20 MG CAPSULE PO SCH (08:45)
[2017-08-03] MEDS: CIPROFLOXACIN HCL 500 MG TABLET PO SCH (08:45)
[2017-08-03] MEDS: AmLODIPine BESYLATE 2.5 MG TABLET PO SCH (08:46)
[2017-08-03] MEDS ORDERED: LACTULOSE 20 GM/30 ML SOLUTION UDCUP PO PRN (15:30)
[2017-08-03 16:16] VITALS: BP 120/79
[2017-08-03] MEDS: DOCUSATE SODIUM 100 MG CAPSULE PO SCH (16:39)
[2017-08-03] MEDS: LORazepam 2 MG TABLET PO PRN (18:04)
[2017-08-03] MEDS: ACETAMINOPHEN 500 MG TABLET PO PRN (18:04)
[2017-08-03] MEDS: QUEtiapine FUMARATE 300 MG TABLET PO SCH (21:38)
[2017-08-03] MEDS: POLYETHYLENE GLYCOL 3350 17 GM PACKET PO SCH (21:38)
[2017-08-03] MEDS: HydrOXYzine PAMOATE 50 MG CAPSULE PO SCH (21:39)
[2017-08-03] MEDS: ESZOPICLONE 3 MG TABLET PO SCH (21:39)
[2017-08-04 05:32] VITALS: BP 140/89
[2017-08-04] MEDS: PANTOPRAZOLE SODIUM 40 MG DR TABLET PO SCH (05:36)
[2017-08-04] MEDS: LORazepam 2 MG TABLET PO PRN (05:37)
[2017-08-04] MEDS: ACETAMINOPHEN 500 MG TABLET PO PRN (05:37)
[2017-08-04 09:00] VITALS: BP 110/73
[2017-08-04] MEDS: DOCUSATE SODIUM 100 MG CAPSULE PO SCH ×2 (09:02→16:38)
[2017-08-04] MEDS: AmLODIPine BESYLATE 2.5 MG TABLET PO SCH (09:02)
[2017-08-04] MEDS: LevETIRAcetam 500 MG TABLET PO SCH ×2 (09:03→16:38)
[2017-08-04] MEDS: DULoxetine HCL 20 MG CAPSULE PO SCH (09:03)
[2017-08-04] MEDS: POLYETHYLENE GLYCOL 3350 17 GM PACKET PO SCH ×2 (09:03→16:38)
[2017-08-04 11:05] VITALS: BP 133/74
[2017-08-04] MEDS: HYDROCODONE/ACETAMINOPHEN 5-325 MG TABLET PO PRN (11:05)
[2017-08-04] MEDS ORDERED: GABAPENTIN 300 MG CAPSULE PO PRN (14:15)
[2017-08-04 16:00] VITALS: BP 120/63
[2017-08-04] MEDS: HydrOXYzine PAMOATE 50 MG CAPSULE PO SCH (20:41)
[2017-08-04] MEDS: QUEtiapine FUMARATE 200 MG TABLET PO SCH (20:41)
[2017-08-04] MEDS: ESZOPICLONE 3 MG TABLET PO SCH (20:41)
[2017-08-05 00:01] VITALS: BP 105/68
[2017-08-05] MEDS: ZOLPIDEM TARTRATE 10 MG TABLET PO PRN (00:06)
[2017-08-05] MEDS: PANTOPRAZOLE SODIUM 40 MG DR TABLET PO SCH (06:37)
[2017-08-05 08:48] VITALS: BP 127/67
[2017-08-05] MEDS: DOCUSATE SODIUM 100 MG CAPSULE PO SCH ×2 (09:11→16:30)
[2017-08-05] MEDS: LevETIRAcetam 500 MG TABLET PO SCH ×2 (09:11→16:30)
[2017-08-05] MEDS: AmLODIPine BESYLATE 2.5 MG TABLET PO SCH (09:11)
[2017-08-05] MEDS: DULoxetine HCL 20 MG CAPSULE PO SCH (09:11)
[2017-08-05] MEDS: POLYETHYLENE GLYCOL 3350 17 GM PACKET PO SCH ×2 (09:11→16:30)
[2017-08-05 12:07] VITALS: BP 131/79
[2017-08-05] MEDS: HYDROCODONE/ACETAMINOPHEN 5-325 MG TABLET PO PRN ×2 (12:07→20:10)
[2017-08-05 16:06] VITALS: BP 130/78
[2017-08-05] MEDS: HydrOXYzine PAMOATE 25 MG CAPSULE PO SCH (17:12)
[2017-08-05] MEDS: GABAPENTIN 400 MG CAPSULE PO SCH ×2 (17:13→21:33)
[2017-08-05 20:10] VITALS: BP 140/85
[2017-08-05] MEDS: PREGABALIN 25 MG CAPSULE PO SCH (21:33)
[2017-08-05] MEDS: QUEtiapine FUMARATE 200 MG TABLET PO SCH (21:33)
[2017-08-05] MEDS: ESZOPICLONE 3 MG TABLET PO SCH (21:33)
[2017-08-05] MEDS: HydrOXYzine PAMOATE 50 MG CAPSULE PO SCH (21:33)
[2017-08-06 05:54] VITALS: BP 104/67
[2017-08-06] MEDS: PANTOPRAZOLE SODIUM 40 MG DR TABLET PO SCH (06:22)
[2017-08-06] MEDS: HYDROCODONE/ACETAMINOPHEN 5-325 MG TABLET PO PRN (07:18)
[2017-08-06] MEDS: POLYETHYLENE GLYCOL 3350 17 GM PACKET PO SCH ×2 (08:21→17:18)
[2017-08-06] MEDS: DOCUSATE SODIUM 100 MG CAPSULE PO SCH ×2 (08:21→17:18)
[2017-08-06] MEDS: GABAPENTIN 400 MG CAPSULE PO SCH ×4 (08:22→20:56)
[2017-08-06] MEDS: HydrOXYzine PAMOATE 25 MG CAPSULE PO SCH ×3 (08:22→17:18)
[2017-08-06] MEDS: PREGABALIN 25 MG CAPSULE PO SCH ×3 (08:22→17:18)
[2017-08-06] MEDS: LevETIRAcetam 500 MG TABLET PO SCH ×2 (08:22→17:18)
[2017-08-06] MEDS: DULoxetine HCL 30 MG CAPSULE PO SCH (08:22)
[2017-08-06] MEDS: AmLODIPine BESYLATE 2.5 MG TABLET PO SCH (08:22)
[2017-08-06 09:15] VITALS: BP 119/81
[2017-08-06] MEDS ORDERED: GABA-533 PO (11:50)
[2017-08-06] MEDS ORDERED: DULO30CA2 PO (11:50)
[2017-08-06] MEDS ORDERED: PREG25 PO (11:50)
[2017-08-06] MEDS ORDERED: VIST50 PO (11:50)
[2017-08-06] MEDS ORDERED: HYD25 PO (11:50)
[2017-08-06] MEDS ORDERED: LEVE500T53 PO (11:50)
[2017-08-06] MEDS ORDERED: QUET200T29 PO (11:50)
[2017-08-06] MEDS ORDERED: ESZO3 PO (11:50)
[2017-08-06 16:06] VITALS: BP 123/83
[2017-08-06] MEDS: QUEtiapine FUMARATE 200 MG TABLET PO SCH (20:55)
[2017-08-06] MEDS: ESZOPICLONE 3 MG TABLET PO SCH (20:56)
[2017-08-06] MEDS: HydrOXYzine PAMOATE 50 MG CAPSULE PO SCH (20:56)
[2017-08-07 05:21] VITALS: BP 139/89
[2017-08-07] MEDS: HYDROCODONE/ACETAMINOPHEN 5-325 MG TABLET PO PRN (05:21)
[2017-08-07] MEDS: PANTOPRAZOLE SODIUM 40 MG DR TABLET PO SCH (06:38)
[2017-08-07] MEDS ORDERED: MIRALAX PO (08:29)
[2017-08-07] MEDS ORDERED: AMLO2.5T PO (08:29)
[2017-08-07] MEDS ORDERED: DSS100 PO (08:29)
[2017-08-07] MEDS ORDERED: PANT40TA25 PO (08:29)
[2017-08-07] MEDS: DULoxetine HCL 30 MG CAPSULE PO SCH (08:34)
[2017-08-07] MEDS: DOCUSATE SODIUM 100 MG CAPSULE PO SCH (08:34)
[2017-08-07 08:35] VITALS: BP_SYST 100; BP_SYST 123; BP_DIAS 70
[2017-08-07] MEDS: LevETIRAcetam 500 MG TABLET PO SCH (08:35)
[2017-08-07] MEDS: HydrOXYzine PAMOATE 25 MG CAPSULE PO SCH ×2 (08:35→12:35)
[2017-08-07] MEDS: PREGABALIN 25 MG CAPSULE PO SCH ×2 (08:35→12:35)
[2017-08-07] MEDS: AmLODIPine BESYLATE 2.5 MG TABLET PO SCH (08:35)
[2017-08-07] MEDS: GABAPENTIN 400 MG CAPSULE PO SCH ×2 (08:35→12:35)
[2017-08-07] MEDS: POLYETHYLENE GLYCOL 3350 17 GM PACKET PO SCH (08:35)
== END 2017-08-07 14:39 | disposition home or self-care (01) | DRG 885 ==
LOC: EMS 11:35 → B2X 19:14
PROVIDERS: ADMIT Psychiatry & Neurology Psychiatry; ATTEND Psychiatry & Neurology Psychiatry
DX: F25.9 Schizoaffective disorder, unspecified (principal); F11.20 Opioid dependence, uncomplicated; R45.851 Suicidal ideations; G40.909 Epilepsy, unspecified, not intractable, without status epilepticus; N31.9 Neuromuscular dysfunction of bladder, unspecified; Z91.19 Patient's noncompliance with other medical treatment and regimen; N39.0 Urinary tract infection, site not specified; F17.210 Nicotine dependence, cigarettes, uncomplicated; J44.9 Chronic obstructive pulmonary disease, unspecified; K21.9 Gastro-esophageal reflux disease without esophagitis; Z88.0 Allergy status to penicillin; Z88.8 Allergy status to other drugs, medicaments and biological substances; F12.90 Cannabis use, unspecified, uncomplicated; F41.9 Anxiety disorder, unspecified; M54.9 Dorsalgia, unspecified; G89.29 Other chronic pain; F32.9 Major depressive disorder, single episode, unspecified; I10 Essential (primary) hypertension; K59.00 Constipation, unspecified; M79.7 Fibromyalgia; Z87.440 Personal history of urinary (tract) infections; Z90.49 Acquired absence of other specified parts of digestive tract
CPT/HCPCS: 87081; 87086; 96372; 99285; G0480; J1885

== ENCOUNTER 2019-08-25 20:04 | Emergency (ER) | payer OTHER, MEDICAID ==
[~2019-08-25] VITALS: Ht 170.2 cm; Wt 81.8 kg
[~2019-08-25 20:04] MED LIST changes: -ACAM333T7 PO; -AMLO2.5T PO; +AMLO2.5T4 PO; -DULO20CA30 PO; +DULO30CA2 PO; -GABA-531 PO; +GABA-533 PO; +HYD25 PO; +HYDR50CA9 PO; +MIRALAX PO; +PREG25 PO; -PREG75 PO; +QUET200T29 PO; -QUET300T18 PO; -QUET300T2 PO; -VIST50 PO
[2019-08-25] MEDS ORDERED: HYDR2 PO (20:17)
[2019-08-25] MEDS ORDERED: DOXY50CA12 PO (20:17)
[2019-08-25] MEDS ORDERED: ESZO2 PO (20:17)
[2019-08-25] MEDS ORDERED: PREG75 PO (20:17)
[2019-08-25] MEDS ORDERED: NALO25TA PO (20:17)
[2019-08-25] MEDS ORDERED: CYCL10 PO (20:17)
[2019-08-25] MEDS ORDERED: ZINC OXIDE 20% 30 GM OINTMENT TP ONE (21:30)
[2019-08-25] MEDS ORDERED: KETOROLAC TROMETHAMINE 30 MG/ML VIAL IM ONE (21:45)
[2019-08-25] MEDS ORDERED: SULFAMETHOX/TRIMETH DS 800-160 MG/TABLET PO ONE (21:45)
[2019-08-25] MEDS ORDERED: DOXYCYCLINE HYCLATE 100 MG CAPSULE PO ONE (22:00)
[2019-08-25 22:03] VITALS: BP 131/93
== END 2019-08-25 22:18 | disposition home or self-care (01) ==
LOC: EMS 20:05
DX: L03.317 Cellulitis of buttock (principal); L89.151 Pressure ulcer of sacral region, stage 1; J44.9 Chronic obstructive pulmonary disease, unspecified; K21.9 Gastro-esophageal reflux disease without esophagitis; F32.9 Major depressive disorder, single episode, unspecified; I10 Essential (primary) hypertension; F20.9 Schizophrenia, unspecified; F41.9 Anxiety disorder, unspecified; G89.29 Other chronic pain; Z90.89 Acquired absence of other organs; Z88.0 Allergy status to penicillin; Z88.8 Allergy status to other drugs, medicaments and biological substances
CPT/HCPCS: 96372; 99284; J0690; J1885

== ENCOUNTER 2020-03-15 13:16 | Day surgery (SDC) | payer MEDICARE, OTHER ==
[2020-03-13 11:12] LABS: COVID AG,FIA SOURCE NASOPHARYNGEAL
[~2020-03-15] VITALS: Ht 170.2 cm; Wt 88.6 kg
[~2020-03-15 13:16] MED LIST changes: -AMLO2.5T4 PO; +AMLO2.5T96 PO; +CYCL10 PO; +DOXY50CA12 PO; -DULO30CA2 PO; +DULO30CA96 PO; +ESZO2 PO; +HYDR2 PO; +NALO25TA4 PO; +PANT-31 PO; -PANT40TA25 PO; +PREG75 PO; +PROPOFOL 1% 20 ML VIAL IVP ONE; +SODIUM CHLORIDE 0.9% 1,000 ML IV ONE; +SODIUM CHLORIDE 0.9% 1,000 ML ONE
[2020-03-15] MEDS ORDERED: QUET25TA PO (13:51)
[2020-03-15] MEDS ORDERED: FLUT16H NASAL (13:51)
[2020-03-15] MEDS ORDERED: ARIP10TA8 PO (13:51)
[2020-03-15] MEDS ORDERED: ESOM20CA31 PO (13:51)
[2020-03-15] MEDS ORDERED: QUET300T2 PO (13:51)
== END 2020-03-15 15:30 | disposition home or self-care (01) ==
LOC: SURGERY 13:16
PROVIDERS: ATTEND Student in an Organized Health Care Education/Training Program
DX: K29.70 Gastritis, unspecified, without bleeding (principal); K44.9 Diaphragmatic hernia without obstruction or gangrene; K21.9 Gastro-esophageal reflux disease without esophagitis; F32.9 Major depressive disorder, single episode, unspecified; Z20.828 Contact with and (suspected) exposure to other viral communicable diseases; Z98.890 Other specified postprocedural states; Z90.49 Acquired absence of other specified parts of digestive tract
CPT/HCPCS: 43239; 87426; C1769; C9803; J2704; J7030; 88305; 88312; 88313